=== PATIENT | female | born 1930 | race Caucasian/White ===

== ENCOUNTER 2016-12-30 08:37 | Emergency (ER) | payer MEDICARE, OTHER ==
[2016-12-30 08:47] VITALS: BP 157/88
--- NOTE | 2016-12-30 09:18 | UC ---
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 SUSTAINED A SKIN TEAR. IS STILL OOZING SLIGHTLY - PT ON XARELTO. TETANUS BOOSTED 12/2012. - History Of Current Complaint Chief Complaint: UCLaceration Stated Complaint: LEG LACERATION Time Seen by Provider: 12/30/16 08:56 Hx Obtained From: Patient Mechanism Of Injury: Blunt Trauma Onset/Duration: Sudden Onset Severity: Mild Pain Intensity: 3 Pain Scale Used: 0-10 Numeric Aggravating Factors: Nothing - Allergies/Home Medications Allergies/Adverse Reactions: Allergies Allergy/AdvReac Type Severity Reaction Status Date / Time Aspirin Allergy Unknown Unknown Verified 12/30/16 08:47 Reaction Details Morphine Allergy Unknown Unknown Verified 12/30/16 08:47 Reaction Details Penicillins Allergy Unknown Unknown Verified 12/30/16 08:47 Reaction Details Sulfa Drugs Allergy Unknown Unknown Verified 12/30/16 08:47 Reaction Details MOLD AND POLLEN Allergy Unknown Uncoded 12/30/16 08:47 Reaction Details Home Medications: Home Medications Cranberry (Vaccinium Macrocarp [Cranberry Extract] 1 tab DAILY 12/30/16 [ History Confirmed 12/30/16] Cyanocobalamin TAB* [Vitamin B12 TAB*] 1 tab PO DAILY 12/30/16 [History Confirmed 12/30/16] Hydroxychloroquine TAB* [Plaquenil TAB*] 1 tab PO DAILY 12/30/16 [History Confirmed 12/30/16] Metoprolol Succinate [Toprol Xl] 1 tab PO DAILY 12/30/16 [History Confirmed ] Montelukast Sodium TAB* [Singulair 10 MG TAB*] 1 tab PO DAILY 12/30/16 [History Confirmed 12/30/16] Multiple Vitamins W/ Minerals [Alive Once Daily Womens U] 1 tab PO DAILY [History Confirmed 12/30/16] Spironolactone [Aldactone 25 MG-] 1 tab PO DAILY 12/30/16 [History Confirmed ] Tramadol HCl [Ultram] 1 tab PO Q6HR PRN 12/30/16 [History Confirmed 12/30/16] PMH/Surg Hx/FS Hx/Imm Hx Endocrine History: Hypothyroidism, Dyslipidemia Cardiovascular History: Hypertension, Congestive Heart Failure, Atrial Fibrillation Respiratory History: Asthma Other History Of: Anticoagulant Therapy Negative For: HIV, Hepatitis B, Hepatitis C - Surgical History Surgical History: Yes Surgery Procedure, Year, and Place: [facility]. 1992 & 1993 & 2009 BILATERAL HIP REPLACEMENTS [facility] [place]. 2012 Rt HAND - GANGLION CYST [facility] [place]. 2000 THYROIDECTOMY [facility] [place]. 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 C -diff colitis - Family History Known Family History: Positive: Hypertension - Social History Alcohol Use: Occasionally Alcohol Amount: 1 GLASS OF WINE 1-2 TIMES PER WEEK Substance Use Type: None Smoking Status (MU): Former Smoker Amount Used/How Often: X 2 YEARS Have You Smoked in the Last Year: No When Did the Patient Quit Smoking/Using Tobacco: 1955 - Immunization History Most Recent Influenza Vaccination: FALL 2014 Most Recent Tetanus Shot: Unsure Most Recent Pneumonia Vaccination: UP TO DATE Review of Systems Constitutional: Negative Skin: Other - LACERATION Respiratory: Negative Cardiovascular: Negative Gastrointestinal: Negative All Other Systems Reviewed And Are Negative: Yes Physical Exam Triage Information Reviewed: Yes Appearance: Well-Appearing, No Pain Distress, Well-Nourished Vital Signs: Initial Vital Signs Temp 97.1 F 12/30/16 08:38 Pulse 59 12/30/16 08:38 Resp 16 12/30/16 08:38 BP 157/88 12/30/16 08:38 Pulse Ox 99 12/30/16 08:38 Vital Signs Reviewed: Yes Eyes: Positive: Conjunctiva Clear ENT: Positive: Hearing grossly normal Neck: Positive: Supple Respiratory: Positive: No respiratory distress, No accessory muscle use Cardiovascular: Positive: Pulses Normal Abdomen Description: Positive: Soft Musculoskeletal: Positive: No Edema Neurological: Positive: Alert Psychological: Positive: Age Appropriate Behavior Skin: Positive: Other - 4.5CM SKIN FLAP RIGHT NORIEGA Laceration Course/Dx - Course/Dx Course Of Treatment: WOUND CLEANSED AND PRESSURE DRESSING APPLIED. - Differential Dx - Laceration/Wound Provider Diagnoses: SKIN TEAR RIGHT NORIEGA Discharge - Discharge Plan Condition: Stable Disposition: HOME Patient Education Materials: Skin Tear (ED) Referrals: Madai Salinas MD [Primary Care Provider] - If Needed Additional Instructions: KEEP THE DRESSING ON UNTIL TOMORROW MORNING THEN GENTLY CLEANSE WITH SOAP AND WATER. ALLOW TO DRY COMPLETELY THEN RE-BANDAGE. DO NOT SCRUB. DO NOT SOAK FOR PROLONGED PERIODS IN WATER - NO BATHS, SWIMMING, HOT TUBS. CHANGE BANDAGE DAILY AND NEEDED IF IT BECOMES SOILED OR WET. SEEK FOLLOW-UP IF YOU DEVELOP SPREADING REDNESS OF THE SKIN, PURULENT DRAINAGE, FEVER, INCREASED PAIN OR ANY OTHER CONCERNING SYMPTOMS.
== END 2016-12-30 09:44 | disposition home or self-care (01) ==
LOC: UCEAST 08:37
DX: S81.811A Laceration without foreign body, right lower leg, initial encounter (principal); E03.9 Hypothyroidism, unspecified; E78.5 Hyperlipidemia, unspecified; I10 Essential (primary) hypertension; I50.9 Heart failure, unspecified; I48.91 Unspecified atrial fibrillation; Z79.01 Long term (current) use of anticoagulants; J45.909 Unspecified asthma, uncomplicated; Z87.891 Personal history of nicotine dependence; W22.8XXA Striking against or struck by other objects, initial encounter; Y93.G1 Activity, food preparation and clean up; Y92.000 Kitchen of unspecified non-institutional (private) residence as the place of occurrence of the external cause; Y99.9 Unspecified external cause status
CPT/HCPCS: 99212; G0463

== ENCOUNTER 2017-03-23 12:41 | Emergency (ER) | payer MEDICARE, OTHER ==
[2017-03-23 12:53] VITALS: BP 177/73
--- NOTE | 2017-03-23 13:36 | UC ---
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 Denies fever or trouble walking. - History of Current Complaint Chief Complaint: UCSkin Time Seen by Provider: 03/23/17 13:10 Stated Complaint: SOFT TISSUE COMPLAINT Hx Obtained From: Patient Hx Last Menstrual Period: Years ago. ?: No Onset/Duration: Sudden Onset Timing: Constant Onset Severity: Mild Current Severity: Moderate Location: Discrete Character: Pain, Redness Aggravating Factor(s): Touch Alleviating Factor(s): Nothing Associated Signs & Symptoms: Positive: Rash, Tenderness Related History: Trauma - Allergy/Home Medications Allergies/Adverse Reactions: Allergies Allergy/AdvReac Type Severity Reaction Status Date / Time Aspirin Allergy Unknown Unknown Verified 03/23/17 12:53 Reaction Details Morphine Allergy Unknown Unknown Verified 03/23/17 12:53 Reaction Details Penicillins Allergy Unknown Unknown Verified 03/23/17 12:53 Reaction Details Sulfa Drugs Allergy Unknown Unknown Verified 03/23/17 12:53 Reaction Details MOLD AND POLLEN Allergy Unknown Uncoded 03/23/17 12:53 Reaction Details Review of Systems Constitutional: Negative Skin: Rash, Bruising Eyes: Negative ENT: Negative Respiratory: Negative Cardiovascular: Negative Gastrointestinal: Negative Genitourinary: Negative Motor: Negative Neurovascular: Negative Musculoskeletal: Negative Neurological: Negative Psychological: Negative Is Patient Immunocompromised?: No All Other Systems Reviewed And Are Negative: Yes PMH/Surg Hx/FS Hx/Imm Hx - Additional Past Medical History Additional PMH: Hx of c-diff Endocrine History: Thyroid Disease Cardiovascular History: Hypertension, Congestive Heart Failure, Atrial Fibrillation Respiratory History: Asthma Other Cancer History: skin CA Other History Of: Anticoagulant Therapy Negative For: HIV, Hepatitis B, Hepatitis C - Surgical History Surgical History: Yes Surgery Procedure, Year, and Place: [facility]. 1992 & 1993 & 2009 BILATERAL HIP REPLACEMENTS [facility] [place] 2012 Rt HAND - [facility]ANGLION [facility]ST [facility]. 2000 THYROIDECTOMY [facility] [place]. 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 C -diff colitis - Family History Known Family History: Positive: Hypertension - Social History Alcohol Use: Occasionally Alcohol Amount: 1 GLASS OF WINE 1-2 TIMES PER WEEK Substance Use Type: None Smoking Status (MU): Former Smoker Amount Used/How Often: X 2 YEARS Have You Smoked in the Last Year: No When Did the Patient Quit Smoking/Using Tobacco: 1955 - Immunization History Most Recent Influenza Vaccination: FALL 2014 Most Recent Tetanus Shot: Unsure Most Recent Pneumonia Vaccination: UP TO DATE Physical Exam Triage Information Reviewed: Yes Appearance: Well-Appearing, No Pain Distress, Well-Nourished Vital Signs: Initial Vital Signs Temp 97.4 F 03/23/17 12:49 Pulse 51 03/23/17 12:49 Resp 18 03/23/17 12:49 BP 177/73 03/23/17 12:49 Pulse Ox 98 03/23/17 12:49 Vital Signs Reviewed: Yes Eyes: Positive: Conjunctiva Clear ENT Exam: Normal ENT: Positive: Normal ENT inspection, Hearing grossly normal, Pharynx normal, TMs normal Neck exam: Normal Neck: Positive: Supple, Nontender Respiratory Exam: Normal Respiratory: Positive: Chest non-tender, Lungs clear, Normal breath sounds, No respiratory distress, No accessory muscle use Cardiovascular Exam: Normal Cardiovascular: Positive: RRR Musculoskeletal Exam: Normal Musculoskeletal: Positive: Strength Intact, ROM Intact Neurological Exam: Normal Neurological: Positive: Alert Psychological Exam: Normal Skin Exam: Other - 2 longitudinal abrasions on L melton 3-4cm long x 1cm wide with dark surrounding erythema, warmth, tenderness Course/Dx - Diagnoses Provider Diagnoses: L melton abrasions. L melton cellulitis Discharge - Discharge Plan Condition: Stable Disposition: HOME Prescriptions: DOXYcycline CAP(*) [DOXYcycline 100MG CAP(*)] 100 mg PO BID #10 cap Mupirocin 2% OINT* [Bactroban 2 % Oint*] 1 applic TOPICAL BID #1 tube Patient Education Materials: Cellulitis (ED), Abrasion (ED) Referrals: Madai Salinas MD [Primary Care Provider] - Additional Instructions: When possible, try to elevate the leg above the level of your heart. Wash the area with warm soaks (use soap or epsom salts) twice daily and reapply your ointment. If you have fever or worsening symptoms, please go to the emergency department. Otherwise, see your primary care provider in 3-4 days for a recheck.
== END 2017-03-23 13:41 | disposition home or self-care (01) ==
LOC: UCEAST 12:41
DX: S80.812A Abrasion, left lower leg, initial encounter (principal); Z88.6 Allergy status to analgesic agent; Z88.0 Allergy status to penicillin; Z88.2 Allergy status to sulfonamides; I11.0 Hypertensive heart disease with heart failure; I50.9 Heart failure, unspecified; I48.91 Unspecified atrial fibrillation; J45.909 Unspecified asthma, uncomplicated; Z85.828 Personal history of other malignant neoplasm of skin; X58.XXXA Exposure to other specified factors, initial encounter; Y92.9 Unspecified place or not applicable
CPT/HCPCS: 99212; G0463

== ENCOUNTER 2017-04-25 08:54 | Emergency (ER) | payer MEDICARE, OTHER ==
[2017-04-25 09:11] VITALS: BP 144/72
--- NOTE | 2017-04-25 09:37 | UC ---
Complaint Female HPI - History Of Current Complaint Chief Complaint: UCGeneralIllness Stated Complaint: UTI Time Seen by Provider: 04/25/17 09:19 Hx Obtained From: Patient Hx Last Menstrual Period: Years ago. Onset/Duration: Gradual Onset - was treted for UTI 2 weeks ago. finished cephalexin yesterday. over psat 2-3 days sh eas had worsening burning "on the flesh" of her private area. no vag d/c, very burning and itchy irritated Timing: Constant Severity Initially: Mild Severity Currently: Moderate Character: Burning Aggravating Factor(s): Urination Alleviating Factor(s): Nothing Associated Signs And Symptoms: Positive: Negative - Allergies/Home Medications Allergies/Adverse Reactions: Allergies Allergy/AdvReac Type Severity Reaction Status Date / Time Aspirin Allergy Unknown Unknown Verified 04/25/17 09:11 Reaction Details Morphine Allergy Unknown Unknown Verified 04/25/17 09:11 Reaction Details Penicillins Allergy Unknown Unknown Verified 04/25/17 09:11 Reaction Details Sulfa Drugs Allergy Unknown Unknown Verified 04/25/17 09:11 Reaction Details MOLD AND POLLEN Allergy Unknown Uncoded 04/25/17 09:11 Reaction Details Home Medications: Home Medications Fluticasone/Vilanterol MDI(NF) [Breo Ellipta MDI 100/25(NF)] 1 puff INH DAILY [History Confirmed 04/25/17] Lactobacillus [Probiotic] 1 cap PO DAILY 04/25/17 [History Confirmed 04/25/17] PMH/Surg Hx/FS Hx/Imm Hx Previously Healthy: Yes Endocrine History: Dyslipidemia Cardiovascular History: Hypertension Respiratory History: COPD Other History Of: Anticoagulant Therapy Negative For: HIV, Hepatitis B, Hepatitis C - Surgical History Surgical History: Yes Surgery Procedure, Year, and Place: [facility]. 1992 & 1993 & 2009 BILATERAL HIP REPLACEMENTS [facility] [place]. 2012 Rt HAND - [facility]ANGLION [facility]. 2000 THYROIDECTOMY [facility] [place]. 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 C -diff colitis - Family History Known Family History: Positive: Hypertension - Social History Occupation: Retired Lives: Alone Alcohol Use: Occasionally Alcohol Amount: 1 GLASS OF WINE 1-2 TIMES PER WEEK Substance Use Type: None Smoking Status (MU): Former Smoker Amount Used/How Often: X 2 YEARS Have You Smoked in the Last Year: No When Did the Patient Quit Smoking/Using Tobacco: 1955 - Immunization History Most Recent Influenza Vaccination: 04/24 Most Recent Tetanus Shot: Unsure Most Recent Pneumonia Vaccination: UP TO DATE Review of Systems Constitutional: Negative Respiratory: Negative Cardiovascular: Negative Genitourinary: Dysuria, Vaginal/Penile Burning, Vaginal/Penile Itching Neurovascular: Negative Neurological: Negative Psychological: Negative All Other Systems Reviewed And Are Negative: Yes Physical Exam Triage Information Reviewed: Yes Appearance: Well-Appearing, No Pain Distress, Well-Nourished Vital Signs: Initial Vital Signs Temp 98.7 F 04/25/17 09:04 Pulse 60 04/25/17 09:04 Resp 18 04/25/17 09:04 BP 144/72 04/25/17 09:04 Pulse Ox 98 04/25/17 09:04 Vital Signs Reviewed: Yes Respiratory Exam: Normal Cardiovascular Exam: Normal Cardiovascular: Positive: RRR Abdominal Exam: Normal Abdomen Description: Positive: Nontender, No Organomegaly, Soft Neurological Exam: Normal Psychological Exam: Normal Complaint Female Dx - Differential Dx/Diagnosis Differential Diagnosis/HQI/PQRI: Ureteral Stone, Urinary Tract Infection, Other - vaginitis Provider Diagnoses: vaginitis Discharge - Discharge Plan Condition: Stable Disposition: HOME Prescriptions: Fluconazole [Diflucan 150 MG (NF)] 150 mg PO ONCE #1 tab Patient Education Materials: Vaginitis (ED) Referrals: Madai Salinas MD [Primary Care Provider] - 2 Days (if no better) Additional Instructions: Use over the counter monistat cream for vaginal yeast infection take one diflucan pill as directed
== END 2017-04-25 09:50 | disposition home or self-care (01) ==
LOC: UCEAST 08:54
DX: N76.0 Acute vaginitis (principal)
CPT/HCPCS: 81003; 87086; 99212; G0463

== ENCOUNTER 2017-11-18 10:30 | Emergency (ER) | payer MEDICARE, OTHER ==
--- OUTSIDE RECORDS SUMMARY | 2017-11-18 10:38 | XMS REPORT ---
:1930 External Reference #:[id number] Author Organization [facility] Address [address] [place] [address] Phone [phone] Care Team Providers Name Role Phone Madai Salinas MD Care Team Information Spot Sprayer Unavailable Madai Salinas MD Primary Care Physician Unavailable Payers Type Date Identification Numbers Payment Provider Subscriber Medicare Primary Policy Number: [id number] Medicare [place] Jennifer Cooper PayID: [id number] [address] [place] [address] Commercial Policy Number: [id number] Lifetime Benefit Jennifer Cooper Solution PayID: [id number] [address] [place] [address] Problems Date Description Provider Status Onset: 11/11/2017 Exacerbation of moderate Rom Lepe MD Active persistent asthma Onset: 04/24/2017 Mild intermittent asthma WARREN Orosco Active Onset: 11/24/2016 Exacerbation of intermittent Mei Lorenz RPA-Rafa Active asthma Onset: 11/28/2015 Dyspnea Mei Lorenz RPA-Rafa Active Onset: 06/29/2015 Mild intermittent asthma Mei Lorenz RPA-C Active Onset: 06/29/2015 Allergic rhinitis Mei Lorenz RPA-C Active Onset: 06/29/2015 Allergic rhinitis due to pollen ADAM Omer Active Social History Type Date Description Comments Smoke-Free Home is smoke-free Pets 1 dog Occupation Retired and lives alone Smoking Patient is a former smoker Smoked for a time in her early 20s Allergies, Adverse Reactions, Alerts Date Description Reaction Status Severity Comments 04/06/2013 Aspirin active 04/06/2013 Penicillins active 04/06/2013 Morphine Sulfate active 04/06/2013 Sulfa (Sulfonamide Antibiotics) active Medications Medication Date Status Form Strength Qnty SIG Indications Ordering Provider Prednisone 11/11 Active Tablets 5mg 30tab 6 tablets J45.41 s (30 mg) Eugene Lepe MD by mouth once a day x 5 days Breo Ellipta 11/11 Active Aerosol 200-25mcg 1unit inhale J45.41 opher /2017 /Inh s one puff Eugene Lepe MD once a day Qvar Redihaler 09/09 Active Aerosol 80mcg/Act 1unit inhale 2 s puffs Eugene Lepe MD twice a day. rinse mouth after use. Flonase Allergy 05/22 Active Suspension 50mcg/Act 1unit 2 puffs Alva Richard, s each [employer] nostril every day during spring with exposure to pollen Breo Ellipta 05/11 Active Aerosol 100-25mcg 28uni 1 puff Alva Richard, /Inh ts every day [employer] mouth care afterward Montelukast 10/04 Active Tablets 10mg 30tab take 1 Christopher Sodium s tablet Eugene Lepe MD (10 mg) by oral route once daily in the evening Levocetirizine 06/15 Active Tablets 5mg 30tab take 1 Omer, Dihydrochloride s tablet po YESIKA Cid once daily as needed Xopenex HFA 09/01 Active Aerosol 45mcg/Act 15gm inhale Alva Nevarez one puff [employer] by inhalatio n route every 4 hours, as needed. Received Indefinit e Approval Lipitor Active Tablets 10mg 1 by Unknown / mouth every day Xarelto Active Tablets 20mg Unknown Levothyroxine Active Unknown Sodium /0000 Plaquenil Active Unknown Spironolactone Active Unknown Cranberry Active Unknown Urinary Comfort 0000 Vitamin B12 Active Unknown Tylenol Active 2 tabs q 6hrs Cozaar Active Tablets 50mg 1 by Unknown /0000 mouth every day Toprol XL Active Tablets ER 25mg Unknown / 24HR Prednisone 11/24 Hx Tablets 20mg 10tab Take one J45.21 s tablet by Eugene Lepe MD - mouth 04/24 twice a day x5 days. Take with food. Flonase Allergy 06/15 Hx Suspension 50mcg/Act 3unit 2 puffs s each Eugene Lepe MD - nostril 04/24 every day Qvar 05/22 Hx Aerosol 80mcg/Act 8.7un inhale 2 its puffs by YESIKA Cid - inhalatio 05/11 n route times per day. rinse mouth after use. Singulair 04/26 Hx Tablets 10mg 30tab take 1 Mei S. s tablet Fenstermache - (10 mg) YESIKA causey 06/29 by oral route once daily in the evening Neurontin Hx Capsules 300mg Unknown /0000 - 04/24 Qnasl 00/ Hx Unknown /0000 - 05/22 Pataday 00/ Hx Unknown /0000 - 04/24 Alavert 00/00 Hx Unknown / - 11/27 Furosemide 00/00 Hx Unknown / - 11/11 Metoprolol 00/ Hx Unknown Tartrate / - 11/11 Potassium Hx Capsules 10Meq take 2 Unknown Chloride ER /0000 ER capsules - by mouth 04/24 daily Alive Womens 50+ Hx Tablets Unknown /0000 - 11/11 Tramadol HCL ER 00/00 Hx 1 tab 4x Unknown /0000 a day ( - max) 11/11 Fluticasone 00/00 Hx Unknown Propionate /0000 - 11/11 Vital Signs Date Vital Result Comment 11/11/2017 BP Systolic 144 mmHg BP Diastolic 80 mmHg Height 63 inches 5'3" Weight 133.00 lb BMI (Body Mass Index) 23.6 kg/m2 Heart Rate 55 /min Respiratory Rate 20 /min Body Temperature 97.0 F O2 % BldC Oximetry 97 % 05/22/2017 Height 63 inches 5'3" Weight 138.00 lb BMI (Body Mass Index) 24.4 kg/m2 04/24/2017 Height 63 inches 5'3" Weight 138.00 lb BMI (Body Mass Index) 24.4 kg/m2 Heart Rate 55 /min Respiratory Rate 14 /min Body Temperature 96.3 F O2 % BldC Oximetry 99 % 11/24/2016 BP Systolic 122 mmHg BP Diastolic 68 mmHg Height 63 inches 5'3" Weight 138.00 lb BMI (Body Mass Index) 24.4 kg/m2 Heart Rate 55 /min Respiratory Rate 20 /min Body Temperature 95.6 F O2 % BldC Oximetry 98 % 11/28/2015 BP Systolic 140 mmHg BP Diastolic 82 mmHg Height 63 inches 5'3" Weight 133.00 lb BMI (Body Mass Index) 23.6 kg/m2 Heart Rate 50 /min Respiratory Rate 18 /min O2 % BldC Oximetry 98 % 06/29/2015 BP Systolic 118 mmHg BP Diastolic 70 mmHg Height 63.5 inches 5'3.50" Weight 130.00 lb BMI (Body Mass Index) 22.7 kg/m2 Heart Rate 80 /min Respiratory Rate 24 /min 04/28/2014 BP Systolic 148 mmHg BP Diastolic 88 mmHg Heart Rate 59 /min 10/26/2013 BP Systolic 122 mmHg BP Diastolic 71 mmHg Height 62 inches Weight 135.00 lb Heart Rate 71 /min 07/01/2013 BP Systolic 181 mmHg BP Diastolic 83 mmHg Heart Rate 51 /min 04/27/2013 BP Systolic 140 mmHg BP Diastolic 80 mmHg Heart Rate 80 /min 04/06/2013 BP Systolic 153 mmHg BP Diastolic 85 mmHg Height 62 inches Weight 134.00 lb Heart Rate 52 /min Results Test Date Test Result H/L Range Note Order 05/22/2017 Nitric Oxide <pending> PFT Supplies <pending> PFT With Bronchodilator <pending> Procedures Date CPT Code Description Status 05/22/2017 96749 Nitric Oxide Gas Determination Completed 05/22/2017 55722 Nitric Oxide Gas Determination Completed 05/22/2017 00480 Bronchodilation Responsiveness Spirometry Pre/Post Completed Bronchodil Adm 05/22/2017 80851 Bronchodilation Responsiveness Spirometry Pre/Post Completed Bronchodil Adm 04/24/2017 81889 Nitric Oxide Gas Determination Completed 04/24/2017 57774 Nitric Oxide Gas Determination Completed 04/24/2017 04169 Bronchodilation Responsiveness Spirometry Pre/Post Completed Bronchodil Adm 04/24/2017 77916 Bronchodilation Responsiveness Spirometry Pre/Post Completed Bronchodil Adm 11/24/2016 99186 Nitric Oxide Gas Determination Completed 11/24/2016 81619 Bronchodilation Responsiveness Spirometry Pre/Post Completed Bronchodil Adm 11/28/2015 30094 Spirometry Completed 06/29/2015 01827 Bronchodilation Responsiveness Spirometry Pre/Post Completed Bronchodil Adm Encounters Type Date Location Provider CPT E/M Dx Office Visit 05/22/2017 1:30p WARREN Juarez 61163 J30.89 R06.02 J30.1 J45.20 Office Visit 04/24/2017 11:30a WARREN Juarez 56793 J45.20 R06.02 J30.89 J30.1 Office Visit 11/24/2016 1:00p YESIKA Bejarano 17377 J45.21 J30.1 J30.89 Office Visit 11/28/2015 8:45a Harrison Lorenz RPA-Rafa 38472 R06.02 Office Visit 06/29/2015 9:30a Harrison Lorenz RPA-Rafa 81944 J30.1 J30.89 J45.20 Plan of Care Future Appointment(s):11/20/2017 2:00 pm - ROSAURA Jacques at [id number]/11/2017 - Rom Lepe MDJ45.41 Moderate persistent asthma with (acute) exacerbationNew Medication:Prednisone 5 mgBreo Ellipta 200-25 mcg/Inh
--- OUTSIDE RECORDS SUMMARY | 2017-11-18 10:38 | XMS REPORT ---
:1930 External Reference #:[id number] Author Organization [facility] Address [address] [place] [address] Phone [phone] Care Team Providers Name Role Phone Madai Salinas MD Care Team Information Boat Deckhand Unavailable Madai Salinas MD Primary Care Physician Unavailable Payers Type Date Identification Numbers Payment Provider Subscriber Medicare Primary Policy Number: [id number] Medicare [place] Jennifer Cooper PayID: [id number] [address] [place] [address] Commercial Policy Number: [id number] Lifetime Benefit Jennifer Cooper Solution PayID: [id number] [address] [place] [address] Problems Date Description Provider Status Onset: 04/24/2017 Mild intermittent asthma WARREN Orosco Active Onset: 11/24/2016 Exacerbation of intermittent Mei Lorenz, Active asthma RPA-C Onset: 11/28/2015 Dyspnea Mei Lorenz, Active RPA-C Onset: 06/29/2015 Mild intermittent asthma Mei Rodriguezermacher, Active RPA-C Onset: 06/29/2015 Allergic rhinitis Mei Lorenz, Active RPA-C Onset: 06/29/2015 Allergic rhinitis due to pollen Mei Lorenz, Active RPA-C Social History Type Date Description Comments Smoke-Free [...] Form Strength Qnty SIG Indications Ordering Provider Qvar Redihaler 09/09 Active Aerosol 80mcg/Act 1unit inhale 2 s puffs Eugene Lepe MD twice a day. rinse mouth after use. Flonase Allergy 05/22 Active Suspension 50mcg/Act 1unit 2 puffs Alva Richard, s each ONLINE MARKETER nostril every day during Spring season with exposure to pollen Breo Ellipta 05/11 Active Aerosol 100-25mcg 28uni 1 puff Alva Richard /Inh ts every day ONLINE MARKETER mouth care afterward Montelukast 10/04 Active Tablets 10mg 30tab take 1 opher Sodium s tablet Eugene Lepe MD (10 mg) by oral route once daily in the evening Levocetirizine 06/15 Active Tablets 5mg 30tab take 1 Angelina Tello s tablet po YESIKA Cid once daily as needed Xopenex HFA 09/01 Active Aerosol 45mcg/Act 15gm inhale Alva one puff ONLINE MARKETER by inhalatio n route every 4 hours, as needed. Received Indefinit e Approval Lipitor Active Tablets 10mg 1 by Unknown /0000 mouth every day Xarelto Active Tablets 20mg Unknown / Levothyroxine Active Unknown Sodium Furosemide Active Unknown Plaquenil Active Unknown Metoprolol Active Unknown Tartrate Spironolactone Active Unknown Cranberry Active Unknown Urinary Comfort 0000 Alive Womens 50+ Active Tablets Unknown /0000 Vitamin B12 Active Unknown / Tylenol Active 2 tabs q Unknown 6hrs Tramadol HCL ER Active 1 tab 4x Unknown 0000 a day ( max) Fluticasone Active Unknown Propionate 0000 Prednisone 11/24 Hx Tablets 20mg 10tab Take one J45.21 s tablet by Eugene Lepe MD - mouth 04/24 twice a /2016 day x5 days. Take with food. Flonase Allergy 06/15 Hx Suspension 50mcg/Act 3unit 2 puffs Christopher s each Eugene Lepe MD - nostril 04/24 every Qvar 05/22 Hx Aerosol 80mcg/Act 8.7un inhale 2 its puffs by YESIKA Cid - inhalatio 05/11 n route times per day. rinse mouth after use. Singulair 04/26 Hx Tablets 10mg 30tab take 1 Mei S. /2014 s tablet Fenstermache - (10 mg) YESIKA causey 06/29 by oral route once daily in the evening Neurontin Hx Capsules 300mg Unknown /0000 - 04/24 Qnasl 00 Hx Unknown /0000 - 05/22 Pataday 00 Hx Unknown /0000 - 04/24 Alavert 00 Hx Unknown /0000 - 11/27 Potassium Hx Capsules 10Meq take 2 Unknown Chloride ER /0000 ER capsules - by mouth 04/24 once daily Vital Signs Date Vital Result Comment 11/11/2017 [...] Procedures Date CPT Code Description Status 05/22/2017 12057 Nitric Oxide Gas Determination Completed 05/22/2017 86101 Nitric Oxide Gas Determination Completed 05/22/2017 93388 Bronchodilation Responsiveness Spirometry Pre/Post Completed Bronchodil Adm 05/22/2017 86332 Bronchodilation Responsiveness Spirometry Pre/Post Completed Bronchodil Adm 04/24/2017 93634 Nitric Oxide Gas Determination Completed 04/24/2017 18504 Nitric Oxide Gas Determination Completed 04/24/2017 77212 Bronchodilation Responsiveness Spirometry Pre/Post Completed Bronchodil Adm 04/24/2017 44483 Bronchodilation Responsiveness Spirometry Pre/Post Completed Bronchodil Adm 11/24/2016 50609 Nitric Oxide Gas Determination Completed 11/24/2016 58819 Bronchodilation Responsiveness Spirometry Pre/Post Completed Bronchodil Adm 11/28/2015 94832 Spirometry Completed 06/29/2015 09553 Bronchodilation Responsiveness Spirometry Pre/Post Completed Bronchodil Adm Encounters Type Date Location Provider CPT E/M Dx Office Visit 05/22/2017 1:30p AWRREN Juarez 35157 J30.89 R06.02 J30.1 J45.20 Office Visit 04/24/2017 11:30a WARREN Juarez 84984 J45.20 R06.02 J30.89 J30.1 Office Visit 11/24/2016 1:[place]p [place] 63131 J45.21 J30.1 J30.89 Office Visit 11/28/2015 8:45a [place] 54290 R06.02 Office Visit 06/29/2015 9:30a [place] YESIKA Omer 09434 J30.1 J30.89 J45.20 Plan of Care Future Appointment(s):11/20/2017 2:00 pm - ROSAURA Jacques at [place]
[2017-11-18] MEDS ORDERED: Tetan/Diph/Pertus SYR(Tdap)* 0.5 ML SYR(BOOSTRIX) use SYR IM ONE (12:59)
--- NOTE | 2017-11-18 13:00 | UC ---
Laceration HPI - History Of Current Complaint Chief Complaint: UCLaceration Stated Complaint: ARM INJURY Time Seen by Provider: 11/18/17 12:47 Hx Obtained From: Patient Hx Last Menstrual Period: Years ago. Laceration Location: Arm - RT upper arm superficial laceration Mechanism Of Injury: Sharp Trauma Onset/Duration: Sudden Onset, Lasting Days - 2 days Severity: Mild Pain Intensity: 2 Pain Scale Used: 0-10 Numeric Aggravating Factors: Other: - touch Related History: Dominant Hand Right - Allergies/Home Medications Allergies/Adverse Reactions: Allergies Allergy/AdvReac Type Severity Reaction Status Date / Time aspirin Allergy Vomiting Verified 11/18/17 10:49 morphine Allergy unk Verified 11/18/17 10:48 Penicillins Allergy unk Verified 11/18/17 10:52 Sulfa (Sulfonamide Allergy reasp Verified 11/18/17 10:53 Antibiotics) distress MOLD AND POLLEN Allergy Unknown Uncoded 04/25/17 09:11 Reaction Details PMH/Surg Hx/FS Hx/Imm Hx Previously Healthy: Yes Other History Of: Anticoagulant Therapy Negative For: HIV, Hepatitis B, Hepatitis C - Surgical History Surgical History: Yes Surgery Procedure, Year, and Place: [facility]. 1992 & 1993 & 2009 BILATERAL HIP REPLACEMENTS [facility]. 2012 Rt HAND - GANGLION CYST [facility]. 2000 TH[facility]ROIDECTOMY [facility]. 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 C -diff colitis - Family History Known Family History: Positive: Hypertension - Social History Alcohol Use: Occasionally Alcohol Amount: 1 GLASS OF WINE 1-2 TIMES PER WEEK Substance Use Type: None Smoking Status (MU): Former Smoker Amount Used/How Often: X 2 YEARS Have You Smoked in the Last Year: No When Did the Patient Quit Smoking/Using Tobacco: 1955 - Immunization History Most Recent Influenza Vaccination: 04/24 Most Recent Tetanus Shot: Unsure Most Recent Pneumonia Vaccination: UP TO DATE Review of Systems Constitutional: Negative Skin: Other - Rt upper arm superficial laceration s/p injury w/ a door frame Eyes: Negative ENT: Negative Respiratory: Negative Cardiovascular: Negative Gastrointestinal: Negative Genitourinary: Negative Motor: Negative Neurovascular: Negative Musculoskeletal: Negative Neurological: Negative Psychological: Negative Is Patient Immunocompromised?: No All Other Systems Reviewed And Are Negative: Yes Physical Exam - Summary Physical Exam Summary: Vital Signs Reviewed: Yes General: well developed, well nourished female sitting in the examining table w/ o any apparent distress Eye Exam: Normal Eyes: Positive: Conjunctiva Clear - PERRLA, EOMI, fundi grossly normal ENT: Positive: Normal ENT inspection, Hearing grossly normal, Pharynx normal, TMs normal Neck: Positive: Supple, Nontender, No Lymphadenopathy Respiratory: Positive: Chest non-tender, Lungs clear, Normal breath sounds, No respiratory distress Cardiovascular: Positive: RRR, No Murmur, Pulses Normal, Brisk Capillary Refill Abdomen Description: Positive: Nontender, No Organomegaly, Soft. Negative: CVA Tenderness (R), CVA Tenderness (L) Bowel Sounds: Positive: Present Musculoskeletal: Positive: Strength Intact, ROM Intact, No Edema Neurological: Positive: Alert, Muscle Tone Normal Psychological Exam: Normal Skin: Positive: medial asper of the distal Rt upper arm w/ and irregular avulse stellar superficial laceration about 4.0 cm in size, no bleeding, no foreign body observed. no tenderness to palpation, FROM of RT arm, sensation intact, capillary refill brisk, and pulses WNL. Triage Information Reviewed: Yes Vital Signs: Initial Vital Signs Temp 98 F 11/18/17 10:45 Pulse 69 11/18/17 10:45 Resp 16 11/18/17 10:45 BP 133/76 11/18/17 10:45 Pulse Ox 98 11/18/17 10:45 Laceration Course/Dx - Differential Dx - Laceration/Wound Differental Diagnoses: Avulsion, Dehiscence, Laceration, Puncture Wound Provider Diagnoses: 1- RT upper arm avulsed laceration Discharge - Discharge Plan Condition: Stable Disposition: HOME Prescriptions: Bacitracin OINTMENT* 1 applic TOPICAL TID #1 tube Patient Education Materials: Laceration (ED), Acute Wound Care (ED) Referrals: Madai Salinas MD [Primary Care Provider] - 2 Days Additional Instructions: 1-Please apply topical antibiotic over the wound. Keep wound clean and dry. 2-Take Tylenol PO q6-8hrs prn for pain or swelling. Please avoid too much flexion w/ your RT arm 4- If you develop fever or redness around your finger despite the antibiotic please return to the Urgent care mor f/u w/ your PCP for further management - Billing Disposition and Condition Condition: STABLE Disposition: Home
[2017-11-18 13:30] VITALS: BP 129/87
== END 2017-11-18 13:45 | disposition home or self-care (01) ==
LOC: UCEAST 10:30
DX: S41.111A Laceration without foreign body of right upper arm, initial encounter (principal); W45.8XXA Other foreign body or object entering through skin, initial encounter; Y92.9 Unspecified place or not applicable; Z88.6 Allergy status to analgesic agent; Z88.5 Allergy status to narcotic agent; Z88.0 Allergy status to penicillin; Z88.2 Allergy status to sulfonamides; Z87.891 Personal history of nicotine dependence
CPT/HCPCS: 90715; 99212; G0463

== ENCOUNTER 2018-02-22 18:07 | Emergency (ER) | payer MEDICARE, OTHER ==
[2018-02-22 20:01] VITALS: BP 170/82
[2018-02-22] MEDS ORDERED: Benzoin Compound STICK TOPICAL ONE (20:04)
--- NOTE | 2018-02-22 20:08 | UC ---
Laceration HPI - HPI Summary HPI Summary: shut left lower leg in care door about 3 hours ago - History Of Current Complaint Chief Complaint: UCLaceration Stated Complaint: L LEG LAC Time Seen by Provider: 02/22/18 19:59 Hx Obtained From: Patient Hx Last Menstrual Period: Years ago. Laceration Location: Calf - left lower Mechanism Of Injury: Blunt Trauma Onset/Duration: Sudden Onset, Lasting Hours - 3 Pain Intensity: 4 Pain Scale Used: 0-10 Numeric - Allergies/Home Medications Allergies/Adverse Reactions: Allergies Allergy/AdvReac Type Severity Reaction Status Date / Time aspirin Allergy Vomiting Verified 02/22/18 20:02 morphine Allergy unk Verified 02/22/18 20:02 Penicillins Allergy unk Verified 02/22/18 20:02 Sulfa (Sulfonamide Allergy reasp Verified 02/22/18 20:02 Antibiotics) distress MOLD AND POLLEN Allergy Unknown Uncoded 02/22/18 20:02 Reaction Details PMH/Surg Hx/FS Hx/Imm Hx Previously Healthy: No Endocrine History: Hypothyroidism, Dyslipidemia Cardiovascular History: Cardiac Disease, Hypertension Respiratory History: Asthma Other History Of: Anticoagulant Therapy Negative For: HIV, Hepatitis B, Hepatitis C - Surgical History Surgical History: Yes Surgery Procedure, Year, and Place: [facility]. 1992 & 1993 & 2009 [place] [facility] [place] 2012 Rt HAND - GANGLION [facility]ST [facility]. 2000 [place] [facility] [place] 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 C -diff colitis - Family History Known Family History: Positive: Hypertension - Social History Occupation: Retired Lives: Alone Alcohol Use: Occasionally Alcohol Amount: 1 GLASS OF WINE 1-2 TIMES PER WEEK Substance Use Type: None Smoking Status (MU): Former Smoker Amount Used/How Often: X 2 YEARS Have You Smoked in the Last Year: No When Did the Patient Quit Smoking/Using Tobacco: 1955 - Immunization History Most Recent Influenza Vaccination: 04/24 Most Recent Tetanus Shot: <5 YEARS Most Recent Pneumonia Vaccination: UP TO DATE Review of Systems Constitutional: Negative Skin: Negative, Other - 12 cm skin tear left calf Eyes: Negative ENT: Negative Respiratory: Negative Cardiovascular: Negative Gastrointestinal: Negative Genitourinary: Negative Motor: Negative Neurovascular: Negative Musculoskeletal: Negative Neurological: Negative Psychological: Negative Is Patient Immunocompromised?: No All Other Systems Reviewed And Are Negative: Yes Physical Exam Triage Information Reviewed: Yes Appearance: Well-Appearing, No Pain Distress, Well-Nourished Vital Signs: Initial Vital Signs Temp 97.1 F 02/22/18 19:56 Pulse 54 02/22/18 19:56 Resp 16 02/22/18 19:56 BP 170/82 02/22/18 19:56 Pulse Ox 100 02/22/18 19:56 Vital Signs Reviewed: Yes Eye Exam: Normal Eyes: Positive: Conjunctiva Clear ENT Exam: Normal ENT: Positive: Normal ENT inspection, Hearing grossly normal. Negative: Nasal congestion, Nasal drainage, Trismus, Muffled voice, Hoarse voice Neck exam: Normal Neck: Positive: Supple, Nontender, No Lymphadenopathy Respiratory Exam: Normal Respiratory: Positive: Chest non-tender, No respiratory distress, No accessory muscle use Cardiovascular Exam: Normal Cardiovascular: Positive: RRR, Pulses Normal, Brisk Capillary Refill Musculoskeletal Exam: Normal Musculoskeletal: Positive: Strength Intact, ROM Intact, No Edema Neurological Exam: Normal Neurological: Positive: Alert, Muscle Tone Normal Psychological Exam: Normal Skin: Positive: Other - 12 cm skin tear left calf Laceration Repair - Laceration Repair 1 Description: Irregular Laceration Size After Repair: Length (cm) - 12, Width (mm) - 5, Depth (mm) - 2 Modified For Repair: No Cleansing Completed Via Routine Prep: Yes Irrigation With Pressure Irrigation Device: Yes Closure Material: SteriStrips Closure Method: Single Layer Laceration Course/Dx - Course/Dx Course Of Treatment: janett wrap applied, patient tolerated well. patient will call PCP in am to conform tetanus is uptodate--allow steri strips to fall off on their own--re-check prn - Differential Dx - Laceration/Wound Provider Diagnoses: 12 cm skin tear with steri repair left lower leg, elevated bod pressure in poor control Discharge - Sign-Out/Discharge Documenting (check all that apply): Patient Departure All imaging exams completed and their final reports reviewed: Yes - Discharge Plan Condition: Stable Disposition: HOME Patient Education Materials: Contusion in Adults (ED), Hypertension (ED), Steristrips (ED) Referrals: Madai Salinas MD [Primary Care Provider] - (check with Dr. Salinas in morning regards tetanus vaccine) - Billing Disposition and Condition Condition: STABLE Disposition: Home - Attestation Statements Provider Attestation: I was available for consult. This patient was seen by the [facility]. The patient was not presented to, seen by, or examined by me. -Juan Diego
[2018-02-22] MEDS ORDERED: traMADol TAB* 50 MG PO ONE (20:25)
== END 2018-02-22 21:13 | disposition home or self-care (01) ==
LOC: UCEAST 18:07
CPT/HCPCS: 99212; A9270-GY; G0463

== ENCOUNTER 2018-09-06 08:29 | Emergency (ER) | payer MEDICARE, OTHER ==
[2018-09-06 08:46] VITALS: BP 149/95
--- NOTE | 2018-09-06 09:01 | UC ---
Laceration HPI - HPI Summary HPI Summary: 87 y/o female presents to the urgent care c/o Rt upper arm skin tear s/p dog scratch yesterday afternoon. Pt reports her daughter's dog came to greed her and accidentally scratched her upper arm. Dog is UT w/ all vaccines for her age and she is UTD w/ Tetanus vaccine. She irrigated well area and cover it w/ a big band aid. however this morning she went to her swimming class and removed the band-aid and skin tear began bleeding again since Pt is in Xarelto for A-fib. Pain is 4/10 at touch. Pt can move Rt elbow and Rt arm w/o any problem, Pt denies fever, numbness or tingling sensation over the RT arm. She has mid bruise around wond w/ mild swelling. Pt denies SOB, CALVO, dizziness, Chest pain, abdominal pain, N/V/d. - History Of Current Complaint Chief Complaint: UCSkin Stated Complaint: RT ARM SKIN TEAR Time Seen by Provider: 09/06/18 08:58 Hx Obtained From: Patient Hx Last Menstrual Period: Years ago. Laceration Location: Arm - skin tear of right upper arm s/p dog scratch Mechanism Of Injury: Sharp Trauma Onset/Duration: Lasting Hours - 12 hrs Severity: Mild Pain Intensity: 4 Pain Scale Used: 0-10 Numeric Aggravating Factors: Other: - touch Related History: Dominant Hand Right - Allergies/Home Medications Allergies/Adverse Reactions: Allergies Allergy/AdvReac Type Severity Reaction Status Date / Time aspirin Allergy Vomiting Verified 09/06/18 08:45 morphine Allergy unk Verified 09/06/18 08:45 Penicillins Allergy unk Verified 09/06/18 08:45 Sulfa (Sulfonamide Allergy reasp Verified 09/06/18 08:45 Antibiotics) distress MOLD AND POLLEN Allergy Unknown Uncoded 09/06/18 08:45 Reaction Details PMH/Surg Hx/FS Hx/Imm Hx Previously Healthy: Yes Endocrine History: Hypothyroidism, Dyslipidemia Cardiovascular History: Hypertension, Atrial Fibrillation, Deep Vein Thrombosis GI/ History: Diverticulitis Other History Of: Anticoagulant Therapy Negative For: HIV, Hepatitis B, Hepatitis C - Surgical History Surgical History: Yes Surgery Procedure, Year, and Place: [facility]. 1992 & 1993 & 2009 [place] [facility] [place] R[place] [facility]. [place] [facility] 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 C -diff colitis - Family History Known Family History: Positive: Cardiac Disease, Hypertension - Social History Occupation: Retired Lives: With Family Alcohol Use: Occasionally Alcohol Amount: 1 GLASS OF WINE 1-2 TIMES PER WEEK Substance Use Type: None Smoking Status (MU): Former Smoker Amount Used/How Often: X 2 YEARS Have You Smoked in the Last Year: No When Did the Patient Quit Smoking/Using Tobacco: 1955 - Immunization History Most Recent Influenza Vaccination: 04/24 Most Recent Tetanus Shot: <5 YEARS Most Recent Pneumonia Vaccination: UP TO DATE Hx Tetanus, Diphtheria Vaccination: Yes Review of Systems All Other Systems Reviewed And Are Negative: Yes Constitutional: Positive: Negative Skin: Positive: Bruising - RT upper arm, Other - skin laceration of RT upper arm s/p dog scratch Eyes: Positive: Negative ENT: Positive: Negative Respiratory: Positive: Negative Cardiovascular: Positive: Negative Gastrointestinal: Positive: Negative Genitourinary: Positive: Negative Motor: Positive: Negative Neurovascular: Positive: Negative Musculoskeletal: Positive: Other: - RT upper arm pain s/p skin tear Neurological: Positive: Negative Psychological: Positive: Negative Is Patient Immunocompromised?: No Physical Exam - Summary Physical Exam Summary: Vital Signs Reviewed: Yes General: well developed, well nourished old female sitting in the examining table w/o any apparent distress Eye Exam: Normal Eyes: Positive: Conjunctiva Clear - PERRLA, EOMI, fundi grossly normal ENT: Positive: Normal ENT inspection, Hearing grossly normal, Pharynx normal, TMs normal Neck: Positive: Supple, Nontender, No Lymphadenopathy Respiratory: Positive: Chest non-tender, Lungs clear, Normal breath sounds, No respiratory distress Cardiovascular: Positive: RRR, No Murmur, Pulses Normal, Brisk Capillary Refill Abdomen Description: Positive: Nontender, No Organomegaly, Soft. Negative: CVA Tenderness (R), CVA Tenderness (L) Bowel Sounds: Positive: Present Musculoskeletal: Positive: Strength Intact, ROM Intact, No Edema Neurological: Positive: Alert, Muscle Tone Normal Psychological Exam: Normal Skin: Positive:Lateral side of RT distal upper arm , just above elbow with a skin avulsion tear about 2.5cm in size, irregular in shape, non bleeding, no foreign body observed. mild tenderness to palpation, mild ecchymosis and bruise around tear. FROM of RT arm, sensation intact, capillary refill brisk, and pulses WNL. Triage Information Reviewed: Yes Vital Signs: Initial Vital Signs Temp 98.7 F 09/06/18 08:42 Pulse 84 09/06/18 08:42 Resp 18 09/06/18 08:42 BP 149/95 09/06/18 08:42 Pulse Ox 98 09/06/18 08:42 Laceration Repair - Laceration Repair 1 Description: Stellate - superficial skin avulsion tear w/ irregular shape Laceration Size After Repair: Length (cm) - 2.5cm in size Modified For Repair: No Cleansing Completed Via Routine Prep: Yes Irrigation With Pressure Irrigation Device: Yes Closure Material: SteriStrips - and gelfoam Closure Method: Single Layer Suture Of: Skin Laceration Course/Dx - Course/Dx Course Of Treatment: 87 y/o female presents to the urgent care c/o Rt upper arm skin tear s/p dog scratch yesterday afternoon. Pt reports her daughter's dog came to greed her and accidentally scratched her upper arm. Dog is UT w/ all vaccines for her age and she is UTD w/ Tetanus vaccine. She irrigated well area and cover it w/ a big band aid. however this morning she went to her swimming class and removed the band-aid and skin tear began bleeding again since Pt is in [facility] for A-fib. Pain is 4/10 at touch. Pt can move Rt elbow and Rt arm w/o any problem, Pt denies fever, numbness or tingling sensation over the RT arm. She has mid bruise around wond w/ mild swelling. Pt denies SOB, CALVO, dizziness, Chest pain, abdominal pain, N/V/d. Hx obtained. Pt w/Lateral side of RT distal upper arm , just above elbow with a skin avulsion tear about 2.5cm in size, irregular in shape, non bleeding, no foreign body observed. mild tenderness to palpation, mild ecchymosis and bruise around tear. FROM of RT arm, sensation intact, capillary refill brisk, and pulses WNL on examination. LACERATION PROCEDURE NOTE: Copious irrigation was done with saline and the wound cleaned and explored. There was no FB or deep structure injury noted. Wounds cleaned saline water and then w/ Iodine swabs. The skin avulsion tear was covered w/ Gel foam and steri strips and then covered w/ sterile gauze. The Pt tolerated the procedure well without adverse effects. Neurovascular intact and FROM of RT elbow and arm. PtPCN allergic, thus Rx Clindamycin PO to prevent infection sicne dirty wound and advised to apply Bacitracin ointment and take Tylenol PO to alleviate symptoms. Pt advised if any signs of infection develop to immediately return to the urgent care of PCP for further management and treatment.Pt's BP is elevated today advised to decrease salt in diet, monitor BP and f/u with PCP for further management. Pt understood and agreed and left the clinic ambulating A&Ox3. . - Differential Dx - Laceration/Wound Differental Diagnoses: Abrasion, Avulsion, Cellulitis, Laceration, Puncture Wound, Tendon Laceration - Diagnosis Provider Diagnosis: Skin tear of right upper arm without complication, Uncontrolled hypertension Discharge - Sign-Out/Discharge Documenting (check all that apply): Patient Departure - D/c home All imaging exams completed and their final reports reviewed: No Studies - Discharge Plan Condition: Stable Disposition: HOME Prescriptions: Clindamycin Cap(NF) [Clindamycin Cap 300 mg Cap(NF)] 300 mg PO BID #14 cap Patient Education Materials: Skin Tear (ED) Referrals: Madai Salinas MD [Primary Care Provider] - 3 Days Additional Instructions: 1-Please take full course of antibiotic to avoid resistance to prevent infection. Take yogurt w/ probiotics or culturelle to protect your GI system 2- Keep wound clean and dry and avoid excessive movement w/ your elbow 3-Take Tylenol PO q6-8hrs prn for pain or swelling. 4- If you develop fever or redness around wound despite the antibiotic please go to the ER immediately or return to the Urgent care. 5- Your BP is elevated today. please decrease salt in your diet, monitor BP and if it continues to be elevated please f/u with your PCP for further management. - Billing Disposition and Condition Condition: STABLE Disposition: Home
[2018-09-06] MEDS ORDERED: Gelfoam 12-7 ADSORBABL SPONGE* 1 EA SPONGE TOPICAL ONE (09:23)
== END 2018-09-06 09:55 | disposition home or self-care (01) ==
LOC: UCEAST 08:29
DX: S41.111A Laceration without foreign body of right upper arm, initial encounter (principal); W54.1XXA Struck by dog, initial encounter; I10 Essential (primary) hypertension; I48.91 Unspecified atrial fibrillation; E78.5 Hyperlipidemia, unspecified; E03.9 Hypothyroidism, unspecified; Z88.6 Allergy status to analgesic agent; Z88.5 Allergy status to narcotic agent; Z88.0 Allergy status to penicillin; Z88.2 Allergy status to sulfonamides; Z86.718 Personal history of other venous thrombosis and embolism; Z79.01 Long term (current) use of anticoagulants
CPT/HCPCS: 12001; 99212; A9270-GY; G0463

== ENCOUNTER 2019-01-14 07:44 | Emergency (ER) | payer MEDICARE, BC, OTHER ==
--- OUTSIDE RECORDS SUMMARY | 2019-01-14 07:54 | XMS REPORT | Continuity of Care Document ---
:1930 External Reference #:[id number] Author Name Indu Sy Care Team Providers Name Role Phone Madai Salinas MD Primary Care Physician Unavailable Payers Date Identification Numbers Payment Provider Subscriber Policy Number: [id number] Medicare Jennifer Dang PayID: [id number] [address] [place] [address] Effective: 1995 Policy Number: [id number] Medicare Jennifer Dang Expires: 2018 PayID: [id number] [address] [place] [address] Policy Number: [id number] Lifetime Benefit Solution Jennifer Dang Group Number: [id number] [id number] PayID: [id number] Problems Active Problems Provider Date Atrial fibrillation Sebastian Gallardo M.D. Onset: 03/23/2013 Postoperative Wound Closure Sebastian Gallardo M.D. Onset: 04/13/2013 Encounter Clostridium difficile infection Vikas Smiley M.D. Onset: 09/21/2015 Disturbance in sleep behavior Azra Carrero MD Onset: 04/04/2016 Periodic leg movements of sleep Arminda Hill DNP, RN, Onset: 05/07/2016 [facility] Localized, primary osteoarthritis Reema Gilmore M.D. Onset: 05/24/2018 Family History Date Family Member(s) Observation Comments General No Current Problems Father due to Father had arthritis and brother had () arthritis Mother Non contributory at age 75 Social History Type Date Description Comments Sex Unknown Marital Status Lives With Alone Occupation Retired Tobacco Use Start: Unknown End: Former Cigarette Smoker Unknown Smoking Status Reviewed: 12/29/18 Former Cigarette Smoker ETOH Use Currently consumes 2 x/week alcohol Tobacco Use Start: Unknown End: Patient is a former quit in late Unknown smoker Recreational Drug Use Denies Drug Use Exercise Type/Frequency Exercises regularly Allergies, Adverse Reactions, Alerts Active Allergies Reaction Severity Comments Date Aspirin 03/23/2013 Sulfa Antibiotics rash 03/23/2013 Morphine nausea Moderate 03/23/2013 Penicillin rash 03/23/2013 Medications Active Medications SIG Qnty Indications Ordering Date Provider Knee Brace/Flexible please provide 1units M17.11 Ck Meraz, 05/18/2018 Stays/Medium lateral knee [place] [facility] [place] icd9 code 715.96 (right, with lateral cas support) Spironolactone 1 by mouth 90tabs I42.9 Sebastian Leland 12/24/2016 25mg Tablets every day Susan Gallardo Plaquenil take one 90tabs M06.4 Ck Meraz, 10/19/2015 200mg Tablets capsule/tablet M.DJulianna daily by mouth Eliquis 1 tab by mouth Madai Salinas 2.5mg Tablets twice daily MD Noemy Qvar Redihaler 2 puff twice a Unknown 40mcg/Act day Aerosol Losartan Potassium 1 by mouth 90tabs Sebastian D. 50mg every day Sami MLeana Tablets Qnasl as needed Unknown 80mcg/Act Aerosol Breo Ellipta 1 puff inhaled Unknown 100-25mcg/Inh daily Aerosol Fluticasone Propionate instill 2 Unknown sprays into 50mcg/Act Suspension each nostril daily During Spring Season With Exp Xopenex HFA inhale two Unknown 45mcg/Act Aerosol puffs by mouth every four hours as needed (pt not using) Cranberry every day by Unknown 200mg Capsules mouth Vitamin B-12 1 by mouth Unknown Tablets every day Metoprolol Succinate ER take 1 tablet 90tabs Sebastian DJulianna 25mg by mouth every Sami, Susan Tablets ER 24HR day Montelukast Sodium 1 by mouth Unknown 10mg every day Tablets Tylenol prn Unknown 325mg Tablets Multiple Vitamins 1 po qd Unknown Tablets Levocetirizine take 1 tablet Unknown Dihydrochloride by mouth once 5mg Tablets daily if needed Levothyroxine Sodium po qd Unknown 75mcg Atorvastatin Calcium 1 tablet po 90tabs Unknown 10mg daily Tablets History Medications Cozaar on tab a day 90tabs I50.9 Sebastian Ha 09/30/2017 - 50mg Tablets Susan Gallardo 10/13/2017 Golytely 1l, drink 8 oz 1bottle A04.7 Jarod Ha 10/10/2015 - 236gm Solution every 20 minutes Susan Dumont 10/30/2015 Rec until clear bowel movements Voltaren apply 2 grams 200gm M65.872 Ck Meraz 09/28/2015 - 1% Gel twice daily as Susan 10/28/2015 needed for pain to the ankle, okay to try as you tolerated alleve in the past Metronidazole one tablet by 30tasusana Ha 09/13/2015 - 500mg mouth 3 times Susan Dumont 09/24/2015 Tablets daily for 10 days Xarelto 1 po qd 30tabs Sebastian Ha 03/29/2013 - 20mg Tablets Susan Gallardo 06/08/2014 Xarelto 1 by mouth every Unknown - 20mg Tablets day 07/06/2018 Cephalexin Take 2 Capsules By Unknown - 500mg Mouth Twice A Day 09/24/2015 Capsules For 7 Days Vancomycin HCL 1 by mouth four 120caps Jarod Ha - 125mg times a day, stop Susan Dumont 11/12/2015 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 Potassium Chloride ER take 1 capsule by Unknown - mouth once daily 12/24/2016 20Meq Capsules ER Furosemide take 1 tablet by Unknown - 40mg Tablets mouth once daily 12/24/2016 Probiotic 1 by mouth every Unknown - Capsules day 05/19/2016 Tramadol HCL 1-2 tablets every Unknown - 50mg 6 hours as needed 04/03/2016 Tablets Nitrofurantoin take 1 capsule by Unknown - Macrocrystal mouth twice a day 05/10/2016 50mg Capsules Tramadol HCL 1-2 tablets every Unknown - 50mg 6 hours as needed 09/29/2017 Tablets (pt not using) Lasix 1 by mouth every Unknown - 40mg Tablets day 02/24/2017 Probiotic 1 by mouth every Unknown - Capsules day 11/25/2017 Lisinopril 1 by mouth every I50.9 Unknown - 5mg Tablets day 09/30/2017 Cozaar Unknown - 07/06/2018 Lipitor Unknown - 07/06/2018 Xarelto take 1 tablet by Unknown - 15mg Tablets mouth once daily 12/28/2018 Cephalexin one by mouth two Unknown - 500mg times daily 09/10/2015 Tablets Flagyl 1 by mouth three Unknown - 500mg Tablets times a day 09/10/2015 Xyzal 1 by mouth every Unknown - 5mg Tablets day 10/19/2015 Alavert as needed Unknown - 10/30/2015 Xopenex HFA 2 puffs every 4 1Month Unknown - 45mcg/Act hours as needed 04/03/2016 Aerosol for shortness of breath Qnasl 2 inhalations in 8.700gm Unknown - 80mcg/Act Aerosol each nostril once 10/30/2015 daily prn Qvar 4 puff twice a day Unknown - 80mcg/Act Aerosol as needed 07/13/2017 Dymista Instill 1 [place] In Unknown - 137-50mcg/Act Nostril 2 Times A 02/14/2014 Day Pataday instill one drop 2.500ml Unknown - 0.2% Solution into each eye 10/30/2015 daily prn Proair HFA 2 puffs q4h prn Unknown - 02/14/2014 Alvesco 1 puff bid Unknown - 02/14/2014 Nasonex 2 sprays to each 1units Unknown - 50mcg/Act nostril twice 04/12/2013 Suspension daily Singulair 1 po qd 90tabs Unknown - 10mg Tablets 04/12/2013 Pradaxa 1 cap by mouth 180caps Unknown - 150mg Capsules twice a day 03/29/2013 Desloratadine 1 po qd 30tabs Unknown - 5mg 02/14/2014 Tablets Famotidine 1 po qd 60tabs Unknown - 20mg Tablets 02/14/2014 Medications Administered in Office Medication SIG Qnty Indications Ordering Provider Date Depomedrol 40MG Reema Gilmore M.D. 09/01/2018 Injection Depomedrol 40MG Reema Gilmore M.D. 06/14/2018 Injection Triamcinolone (Kenalog) Ck Meraz M.D. 05/03/2018 Injection Triamcinolone (Kenalog) Ck Meraz M.D. 11/25/2017 Injection Triamcinolone (Kenalog) Ck Meraz M.D. 07/13/2017 Injection Triamcinolone (Kenalog) Ck Meraz M.D. 07/13/2017 Injection Triamcinolone (Kenalog) Ck Meraz M.D. 07/13/2017 Injection Depomedrol 80MG NIMO Andrade 03/21/2015 Injection Celestone 3 mg and 3mg Jovany Livingston M.D. 10/03/2014 Injection Depomedrol 80MG Jovany Livingston M.D. 05/13/2011 Injection Immunizations CPT Code Status Date Vaccine Lot # [id number] Given 03/12/2015 Influenza Virus Vaccine, Quadrivalent, Split, Preservative Free Vital Signs Date Vital Result Comment 12/29/2018 8:53am Height 63 inches 5'3" Weight 135.00 lb Heart Rate 95 /min BP Systolic Sitting 96 mmHg BP Diastolic Sitting 72 mmHg Respiratory Rate 14 /min Pain Level 6 BMI (Body Mass Index) 23.9 kg/m2 12/22/2018 8:56am Height 63 inches 5'3" Weight 133.00 lb BP Systolic 102 mmHg BP Diastolic 62 mmHg Respiratory Rate 15 /min Body Temperature 96.6 F Pain Level 2 BMI (Body Mass Index) 23.6 kg/m2 09/15/2018 2:14pm Height 63 inches 5'3" Weight 133.12 lb Heart Rate 65 /min BP Systolic 120 mmHg BP Diastolic 78 mmHg Pain Level 5 O2 % BldC Oximetry 95 % BMI (Body Mass Index) 23.6 kg/m2 09/01/2018 9:11am Height 63 inches 5'3" Weight 134.00 lb Heart Rate 66 /min Body Temperature 96.1 F O2 % BldC Oximetry 76 % BMI (Body Mass Index) 23.7 kg/m2 07/07/2018 10:27am Height 62 inches 5'2" Weight 130.00 lb with shoes Heart Rate 60 /min BP Systolic Sitting 122 mmHg Lue reg cuff BP Diastolic Sitting 60 mmHg Lue reg cuff BP Systolic Standing 122 mmHg LUe reg cuff BP Diastolic Standing 68 mmHg LUe reg cuff Respiratory Rate 16 /min BMI (Body Mass Index) 23.8 kg/m2 Ejection Fraction 20-25% date 12/05/15 echo 07/05/2018 10:37am Height 62 inches 5'2" Heart Rate 50 /min BP Systolic 118 mmHg BP Diastolic 72 mmHg Body Temperature 97.3 F Pain Level 3 06/14/2018 10:30am Height 62 inches 5'2" Weight 133.00 lb BP Systolic 120 mmHg BP Diastolic 76 mmHg Respiratory Rate 16 /min Pain Level 3 BMI (Body Mass Index) 24.3 kg/m2 05/24/2018 8:57am Height 62 inches 5'2" Weight 136.00 lb Heart Rate 84 /min BP Systolic 124 mmHg BP Diastolic 82 mmHg Body Temperature 97.1 F Pain Level 4 BMI (Body Mass Index) 24.9 kg/m2 05/18/2018 9:01am Height 62 inches 5'2" Weight 136.25 lb Heart Rate 56 /min BP Systolic 110 mmHg BP Diastolic 64 mmHg Pain Level 4 O2 % BldC Oximetry 94 % BMI (Body Mass Index) 24.9 kg/m2 05/03/2018 2:25pm Height 62 inches 5'2" Weight 137.38 lb Heart Rate 53 /min BP Systolic 108 mmHg BP Diastolic 60 mmHg Pain Level 5 O2 % BldC Oximetry 94 % BMI (Body Mass Index) 25.1 kg/m2 04/14/2018 1:06pm Height 62 inches 5'2" Weight 137.12 lb Heart Rate 49 /min BP Systolic Sitting 95 mmHg BP Diastolic Sitting 66 mmHg Respiratory Rate 16 /min Pain Level 4 BMI (Body Mass Index) 25.1 kg/m2 12/30/2017 11:21am Height 62 inches 5'2" Heart Rate 60 /min BP Systolic Sitting 110 mmHg lue reg cuff BP Diastolic Sitting 62 mmHg lue reg cuff BP Systolic Standing 100 mmHg BP Diastolic Standing 60 mmHg Respiratory Rate 18 /min Ejection Fraction 20-25% 12/05/2015 echo 12/02/2017 3:00pm Height 62 inches 5'2" Weight 136.00 lb with shoes Heart Rate 56 /min BP Systolic Sitting 110 mmHg Lue reg cuff BP Diastolic Sitting 72 mmHg Lue reg cuff BP Systolic Standing 110 mmHg Lue reg cuff BP Diastolic Standing 70 mmHg Lue reg cuff Respiratory Rate 16 /min BMI (Body Mass Index) 24.9 kg/m2 Ejection Fraction 20-25% 12/05/2015-echo 11/25/2017 10:08am Height 62 inches 5'2" Weight 134.12 lb Heart Rate 60 /min BP Systolic Sitting 122 mmHg BP Diastolic Sitting 70 mmHg Respiratory Rate 14 /min Pain Level 1 BMI (Body Mass Index) 24.5 kg/m2 10/12/2017 2:32pm Height 62 inches 5'2" Weight 133.12 lb Heart Rate 68 /min BP Systolic Sitting 112 mmHg BP Diastolic Sitting 74 mmHg Respiratory Rate 20 /min Pain Level 2 BMI (Body Mass Index) 24.3 kg/m2 09/30/2017 10:56am Height 62 inches 5'2" Weight 133.00 lb with shoes Heart Rate 80 /min irreg BP Systolic Sitting 112 mmHg Lue reg cuff BP Diastolic Sitting 78 mmHg Lue reg cuff BP Systolic Standing 114 mmHg Lue reg cuff BP Diastolic Standing 80 mmHg Lue reg cuff Respiratory Rate 18 /min BMI (Body Mass Index) 24.3 kg/m2 Ejection Fraction 20-25% date 09/07/17 ECHO 07/13/2017 10:27am Height 62 inches 5'2" Weight 143.00 lb Heart Rate 64 /min BP Systolic Sitting 134 mmHg BP Diastolic Sitting 96 mmHg Respiratory Rate 14 /min Pain Level 2 BMI (Body Mass Index) 26.2 kg/m2 06/24/2017 3:46pm Height 62 inches 5'2" Weight 138.00 lb without shoes Heart Rate 66 /min BP Systolic Sitting 152 mmHg Rue reg cuff BP Diastolic Sitting 90 mmHg Rue reg cuff BP Systolic Standing 146 mmHg Rue reg cuff BP Diastolic Standing 80 mmHg Rue reg cuff Respiratory Rate 16 /min BMI (Body Mass Index) 25.2 kg/m2 Ejection Fraction 20-25% date 12/05/15 ECHO 03/25/2017 8:38am Height 62 inches 5'2" Weight 140.00 lb with shoes Heart Rate 54 /min BP Systolic Sitting 134 mmHg Lue reg cuff BP Diastolic Sitting 78 mmHg Lue reg cuff BP Systolic Standing 136 mmHg Lue reg cuff BP Diastolic Standing 80 mmHg Lue reg cuff Respiratory Rate 16 /min BMI (Body Mass Index) 25.6 kg/m2 Ejection Fraction 20-25% 12/05/2015-echo 02/25/2017 10:04am Height 62 inches 5'2" Weight 140.25 lb Heart Rate 60 /min BP Systolic Sitting 142 mmHg BP Diastolic Sitting 84 mmHg Respiratory Rate 16 /min Body Temperature 97.4 F Pain Level 1 while sitting still BMI (Body Mass Index) 25.6 kg/m2 01/08/2017 10:01am Height 62 inches 5'2" Weight 136.50 lb with shoes Heart Rate 64 /min BP Systolic Sitting 120 mmHg Lue reg cuff BP Diastolic Sitting 60 mmHg Lue reg cuff BP Systolic Standing 110 mmHg Lue reg cuff BP Diastolic Standing 64 mmHg Lue reg cuff Respiratory Rate 16 /min BMI (Body Mass Index) 25.0 kg/m2 12/24/2016 8:51am Height 62 inches 5'2" Weight 139.00 lb w/ shoes Heart Rate 64 /min reg BP Systolic Sitting 110 mmHg Lue, reg cuff BP Diastolic Sitting 70 mmHg Lue, reg cuff BP Systolic Standing 114 mmHg Lue BP Diastolic Standing 74 mmHg Lue Respiratory Rate 16 /min BMI (Body Mass Index) 25.4 kg/m2 Ejection Fraction 20-25% as of 12/05/15 echo 08/25/2016 8:53am Height 62 inches 5'2" Weight 138.25 lb Heart Rate 50 /min BP Systolic Sitting 166 mmHg BP Diastolic Sitting 92 mmHg Respiratory Rate 14 /min Body Temperature 96.5 F Pain Level 1 BMI (Body Mass Index) 25.3 kg/m2 06/11/2016 8:48am Height 62 inches 5'2" Weight 141.00 lb w/o shoes Heart Rate 66 /min reg BP Systolic Sitting 130 mmHg Lue, reg cuff BP Diastolic Sitting 76 mmHg Lue, reg cuff BP Systolic Standing 132 mmHg Lue BP Diastolic Standing 76 mmHg Lue Respiratory Rate 16 /min BMI (Body Mass Index) 25.8 kg/m2 Ejection Fraction 20-25% as of 12/05/15 echo 05/07/2016 1:25pm Height 62 inches 5'2" Weight 132.00 lb Heart Rate 60 /min BP Systolic Sitting 132 mmHg BP Diastolic Sitting 76 mmHg Respiratory Rate 14 /min O2 % BldC Oximetry 97 % BMI (Body Mass Index) 24.1 kg/m2 04/11/2016 10:07am Height 62 inches 5'2" Weight 138.00 lb Heart Rate 96 /min BP Systolic Sitting 130 mmHg BP Diastolic Sitting 80 mmHg Body Temperature 96.8 F Pain Level 2 BMI (Body Mass Index) 25.2 kg/m2 04/04/2016 10:17am Height 62 inches 5'2" Weight 130.00 lb Heart Rate 64 /min BP Systolic Sitting 119 mmHg BP Diastolic Sitting 62 mmHg Respiratory Rate 14 /min O2 % BldC Oximetry 97 % BMI (Body Mass Index) 23.8 kg/m2 Neck Circumference in inches 13 01/07/2016 11:09am Height 63.5 inches 5'3.50" Weight 128.00 lb Heart Rate 60 /min BP Systolic Sitting 110 mmHg BP Diastolic Sitting 60 mmHg Respiratory Rate 14 /min Body Temperature 98.4 F Pain Level 2 BMI (Body Mass Index) 22.3 kg/m2 12/04/2015 11:37am Height 63.5 inches 5'3.50" Weight 129.00 lb Heart Rate 60 /min BP Systolic Sitting 138 mmHg BP Diastolic Sitting 72 mmHg Respiratory Rate 14 /min Body Temperature 97.6 F BMI (Body Mass Index) 22.5 kg/m2 11/28/2015 9:41am Height 63.5 inches 5'3.50" Weight 120.00 lb w/o shoes Heart Rate 44 /min BP Systolic 150 mmHg Lue recheck BP Diastolic 80 mmHg Lue recheck BP Systolic Sitting 160 mmHg Lue, reg cuff BP Diastolic Sitting 110 mmHg Lue, reg cuff Respiratory Rate 14 /min O2 % BldC Oximetry 87 % on Ra BMI (Body Mass Index) 20.9 kg/m2 Ejection Fraction 20-25% as of 10/12/15 echo 11/12/2015 10:53am Height 63.5 inches 5'3.50" Weight 136.00 lb Heart Rate 76 /min BP Systolic Sitting 120 mmHg BP Diastolic Sitting 70 mmHg Body Temperature 97.7 F Pain Level 2 BMI (Body Mass Index) 23.7 kg/m2 10/31/2015 1:57pm Height 63.5 inches 5'3.50" Weight 130.00 lb Heart Rate 84 /min BP Systolic Sitting 110 mmHg left arm, reg cuff BP Diastolic Sitting 64 mmHg left arm, reg cuff BP Systolic Standing 92 mmHg left arm, reg cuff BP Diastolic Standing 64 mmHg left arm, reg cuff Respiratory Rate 16 /min BMI (Body Mass Index) 22.7 kg/m2 Ejection Fraction 20-25% 10/12/15 10/19/2015 10:02am Height 63.5 inches 5'3.50" Weight 128.00 lb Heart Rate 76 /min BP Systolic Sitting 110 mmHg BP Diastolic Sitting 70 mmHg Body Temperature 97.5 F Pain Level 3 BMI (Body Mass Index) 22.3 kg/m2 10/10/2015 1:21pm Height 63.5 inches 5'3.50" Weight 132.00 lb Heart Rate 110 /min BP Systolic Sitting 130 mmHg BP Diastolic Sitting 80 mmHg Respiratory Rate 14 /min Body Temperature 98.4 F O2 % BldC Oximetry 94 % BMI (Body Mass Index) 23.0 kg/m2 09/28/2015 10:00am Height 63.5 inches 5'3.50" Heart Rate 84 /min BP Systolic Sitting 124 mmHg BP Diastolic Sitting 80 mmHg Respiratory Rate 16 /min Pain Level 4 09/25/2015 10:02am Height 63.5 inches 5'3.50" Weight 132.00 lb Heart Rate 98 /min BP Systolic Sitting 148 mmHg BP Diastolic Sitting 80 mmHg Respiratory Rate 14 /min Body Temperature 97.5 F BMI (Body Mass Index) 23.0 kg/m2 09/21/2015 11:31am Height 63.5 inches 5'3.50" Weight 133.00 lb Heart Rate 76 /min BP Systolic Sitting 156 mmHg BP Diastolic Sitting 92 mmHg Respiratory Rate 18 /min Pain Level 5 BMI (Body Mass Index) 23.2 kg/m2 09/11/2015 10:08am Height 62.25 inches 5'2.25" Weight 138.00 lb Heart Rate 69 /min BP Systolic Sitting 128 mmHg BP Diastolic Sitting 86 mmHg Respiratory Rate 14 /min Body Temperature 99.0 F O2 % BldC Oximetry 96 % BMI (Body Mass Index) 25.0 kg/m2 09/04/2015 10:57am Height 62.25 inches 5'2.25" Weight 148.50 lb Heart Rate 92 /min BP Systolic Sitting 142 mmHg BP Diastolic Sitting 92 mmHg Respiratory Rate 16 /min Body Temperature 97.6 F BMI (Body Mass Index) 26.9 kg/m2 03/21/2015 8:25am Height 62.25 inches 5'2.25" Weight 132.00 lb Pain Level 5 constant BMI (Body Mass Index) 23.9 kg/m2 10/31/2014 2:46pm Height 62.25 inches 5'2.25" Weight 130.00 lb Pain Level 1 Much better since Celestone injection BMI (Body Mass Index) 23.6 kg/m2 10/03/2014 9:09am Height 62.25 inches 5'2.25" Weight 130.00 lb Pain Level 5 BMI (Body Mass Index) 23.6 kg/m2 03/22/2014 11:36am Height 62.25 inches 5'2.25" Weight 136.00 lb with out shoes Heart Rate 60 /min BP Systolic Sitting 150 mmHg LA reg cuff BP Diastolic Sitting 90 mmHg LA reg cuff BP Systolic Standing 148 mmHg LA reg cuff BP Diastolic Standing 90 mmHg LA reg cuff Respiratory Rate 16 /min BMI (Body Mass Index) 24.7 kg/m2 02/15/2014 9:18am Height 62.5 inches 5'2.50" Weight 132.00 lb Heart Rate 64 /min BMI (Body Mass Index) 23.8 kg/m2 04/13/2013 11:06am Height 62.5 inches 5'2.50" Weight 134.00 lb Heart Rate 60 /min BP Systolic Sitting 158 mmHg Ra reg cuff BP Diastolic Sitting 84 mmHg Ra reg cuff BP Systolic Standing 150 mmHg Ra BP Diastolic Standing 80 mmHg Ra Respiratory Rate 18 /min BMI (Body Mass Index) 24.1 kg/m2 03/23/2013 3:55pm Height 61.5 inches 5'1.50" Weight 134.00 lb down 1 lb Heart Rate 64 /min BP Systolic Sitting 138 mmHg LA reg cuff BP Diastolic Sitting 80 mmHg LA reg cuff BP Systolic Standing 138 mmHg LA BP Diastolic Standing 84 mmHg LA Respiratory Rate 16 /min BMI (Body Mass Index) 24.9 kg/m2 Results Test Date Facility Test Result H/L Range Note Laboratory test 05/04/2018 [facility] C Reactive 4.04 mg/L N < 8.[address] [place] [address] [phone] Erythrocyte Sed Rate 10 mm/Hr N 0-40 CBC Auto Diff 05/04/2018 [facility] White Blood 8.4 10^3/uL N 3.5-10.[address] [place] [address] [phone] Red Blood Count 4.05 10^6/uL N 4.00-5.40 Hemoglobin 12.4 g/dL N 12.0-16.0 Hematocrit 37 % N 35-47 Mean Corpuscular Volume 92 fL N 80-97 Mean Corpuscular Hemoglobin 31 pg N 27-31 Mean Corpuscular HGB Conc 34 g/dL N 31-36 Red Cell Distribution Width 14 % N 10.5-15 Platelet Count 241 10^3/uL N 150-450 Mean Platelet Volume 8.3 fL N 7.4-10.4 Abs Neutrophils 5.7 10^3/uL N 1.5-7.7 Abs Lymphocytes 1.2 10^3/uL N 1.0-4.8 Abs Monocytes 1.1 10^3/uL High 0-0.8 Abs Eosinophils 0.3 10^3/uL N 0-0.6 Abs Basophils 0.1 10^3/uL N 0-0.2 Abs Nucleated RBC 0 10^3/uL Granulocyte % 68.3 % Lymphocyte % 13.8 % Monocyte % 13.7 % Eosinophil % 3.2 % Basophil % 1.0 % Nucleated Red Blood Cells % 0.1 Comp Metabolic Panel 05/04/2018 [facility] Sodium 138 mmol/L N 135-[address] [place] [address] [phone] Potassium 4.6 mmol/L N 3.5-5.0 Chloride 103 mmol/L N 101-111 Co2 Carbon Dioxide 25 mmol/L N 22-32 Anion Gap 10 mmol/L N 2-11 Glucose 78 mg/dL N 70-100 Blood Urea Nitrogen 29 mg/dL High 6-24 Creatinine 1.22 mg/dL High 0.51-0.95 BUN/Creatinine Ratio 23.8 High 8-20 Calcium 9.3 mg/dL N 8.6-10.3 Total Protein 6.5 g/dL N 6.4-8.9 Albumin 4.2 g/dL N 3.2-5.2 Globulin 2.3 g/dL N 2-4 Albumin/Globulin Ratio 1.8 N 1-3 Total Bilirubin 0.60 mg/dL N 0.2-1.0 Alkaline Phosphatase 73 U/L N 34-104 Alt 17 U/L N 7-52 Ast 20 U/L N 13-39 Egfr Non- 41.7 >60 Egfr 50.4 >60 1 Laboratory test 04/14/2018 [facility] Body Fluid SEE RESULT [address] C&S BELOW [place], [place] [id number] [phone] Body Fluid Crystals None Seen None Seen 3 Body Fluid Cell 04/14/2018 [facility] Body Fluid Synovial Fluid Count [address] [place] [address] [phone] Body Fluid WBC 1531 /mcL N 4 Body Fluid RBC 6574 /mcL Body Fluid Appearance Cloudy Body Fluid Color Yellow Body Fluid Volume 9 mL Body Fluid Neutrophils 8 % Body Fluid Lymph 89 % Body Fluid Craig 3 % Body Fluid Total Cells Counted 100 Fluid Reviewed By MD (SEE NOTE) 5 Body Fluid Cell 11/25/2017 [facility] Body Fluid Synovial Fluid Count [address] Source [place], [place] [id number] [phone] Body Fluid Appearance Cloudy Body Fluid Color Yellow Body Fluid Volume 7 mL Body Fluid WBC 531 /mcL N 6 Body Fluid RBC 211 /mcL Body Fluid Neutrophils 80 % Body Fluid Lymph 1 % Body Fluid Craig 19 % Body Fluid Total Cells Counted 100 Fluid Reviewed By MD (SEE NOTE) 7 Laboratory test 11/25/2017 [facility] Body Fluid None Seen None Seen [address] C[place], [place] [id number] [phone] Body Fluid C&S 11/25/2017 [facility] Body Fluid SEE RESULT [address] [place] [address] Stain [phone] Comp Metabolic 11/23/2017 [facility] Sodium 138 mmol/L N 135- [address] [place], [place] [id number] [phone] Potassium 4.3 mmol/L N 3.5-5.0 Chloride 106 mmol/L N 101-111 Co2 Carbon Dioxide 24 mmol/L N 22-32 Anion Gap 8 mmol/L N 2-11 Glucose 116 mg/dL High 70-100 Blood Urea Nitrogen 21 mg/dL N 6-24 Creatinine 1.05 mg/dL High 0.51-0.95 BUN/Creatinine Ratio 20.0 N 8-20 Calcium 9.0 mg/dL N 8.6-10.3 Total Protein 5.8 g/dL Low 6.4-8.9 Albumin 3.7 g/dL N 3.2-5.2 Globulin 2.1 g/dL N 2-4 Albumin/Globulin Ratio 1.8 N 1-3 Total Bilirubin 0.70 mg/dL N 0.2-1.0 Alkaline Phosphatase 63 U/L N 34-104 Alt 17 U/L N 7-52 Ast 17 U/L N 13-39 Egfr Non- 49.7 >60 Egfr 63.9 >60 10 CBC Auto 11/23/2017 [facility] White Blood 13.5 10^3/uL High 3.5-10.[address] [place] [address] [phone] Red Blood Count 4.00 10^6/uL N 4.00-5.40 Hemoglobin 12.3 g/dL N 12.0-16.0 Hematocrit 37 % N 35-47 Mean Corpuscular Volume 92 fL N 80-97 Mean Corpuscular Hemoglobin 31 pg N 27-31 Mean Corpuscular HGB Conc 33 g/dL N 31-36 Red Cell Distribution Width 16 % High 10.5-15 Platelet Count 207 10^3/uL N 150-450 Mean Platelet Volume 8.1 um3 N 7.4-10.4 Abs Neutrophils 11.4 10^3/uL High 1.5-7.7 Abs Lymphocytes 0.9 10^3/uL Low 1.0-4.8 Abs Monocytes 0.9 10^3/uL High 0-0.8 Abs Eosinophils 0.2 10^3/uL N 0-0.6 Abs Basophils 0.1 10^3/uL N 0-0.2 Abs Nucleated RBC 0 10^3/uL Granulocyte % 84.5 % High 38-83 Lymphocyte % 6.4 % Low 25-47 Monocyte % 7.0 % N 0-7 Eosinophil % 1.2 % N 0-6 Basophil % 0.9 % N 0-2 Nucleated Red Blood Cells % 0.3 Laboratory test 11/23/2017 [facility] Erythrocyte Sed 7 mm/Hr N 0-40 [address] [place] [address] [phone] C Reactive Protein 4.15 mg/L N < 5.00 12 Basic Metabolic Panel 01/02/2017 [facility] Sodium 136 mmol/L N 133-[address] [place] [address] [phone] Potassium 4.2 mmol/L N 3.5-5.0 Chloride 105 mmol/L N 101-111 Co2 Carbon Dioxide 25 mmol/L N 22-32 Anion Gap 6 mmol/L N 2-11 Glucose 105 mg/dL High 70-100 Blood Urea Nitrogen 17 mg/dL N 6-24 Creatinine 1.02 mg/dL High 0.51-0.95 BUN/Creatinine Ratio 16.7 N 8-20 Calcium 8.9 mg/dL N 8.6-10.3 Egfr Non- 51.4 N >60 Egfr 66.1 N >60 13 Laboratory test 04/03/2016 [facility] TSH (Thyroid 2.23 mcIU/mL N 0.34-5.60 [address] Stim [place]orm) [place] [address] [phone] Vitamin B12 1086 pg/mL High 180-914 15 Laboratory test 04/03/2016 [facility] Erythrocyte Sed 25 mm/Hr N 0-40 [address] [place] [address] [phone] C Reactive Protein 8.48 mg/L High < 5.00 17 CBC Auto Diff 04/03/2016 [facility] White Blood 8.1 10^3/uL N 3.5-10.[address] [place] [address] [phone] Red Blood Count 4.55 10^6/uL N 4.0-5.4 Hemoglobin 13.2 g/dL N 12.0-16.0 Hematocrit 40 % N 35-47 Mean Corpuscular Volume 89 fL N 80-97 Mean Corpuscular Hemoglobin 29 pg N 27-31 Mean Corpuscular HGB Conc 33 g/dL N 31-36 Red Cell Distribution Width 16 % High 10.5-15 Platelet Count 241 10^3/uL N 150-450 Mean Platelet Volume 9 um3 N 7.4-10.4 Abs Neutrophils 5.4 10^3/uL N 1.5-7.7 Abs Lymphocytes 1.3 10^3/uL N 1.0-4.8 Abs Monocytes 1.0 10^3/uL High 0-0.8 Abs Eosinophils 0.2 10^3/uL N 0-0.6 Abs Basophils 0.2 10^3/uL N 0-0.2 Abs Nucleated RBC 0.02 10^3/uL N Granulocyte % 66.5 % N 38-83 Lymphocyte % 15.9 % Low 25-47 Monocyte % 12.9 % High 1-9 Eosinophil % 2.7 % N 0-6 Basophil % 2.0 % N 0-2 Nucleated Red Blood Cells % 0.2 N Comp Metabolic Panel 04/03/2016 [facility] Sodium 138 mmol/L N 133-[address] [place] [address] [phone] Potassium 3.9 mmol/L N 3.5-5.0 Chloride 102 mmol/L N 101-111 Co2 Carbon Dioxide 30 mmol/L N 22-32 Anion Gap 6 mmol/L N 2-11 Glucose 91 mg/dL N 70-100 Blood Urea Nitrogen 22 mg/dL N 6-24 Creatinine 0.99 mg/dL High 0.51-0.95 BUN/Creatinine Ratio 22.2 High 8-20 Calcium 9.4 mg/dL N 8.6-10.3 Total Protein 7.1 g/dL N 6.4-8.9 Albumin 4.0 g/dL N 3.2-5.2 Globulin 3.1 g/dL N 2-4 Albumin/Globulin Ratio 1.3 N 1-3 Total Bilirubin 0.50 mg/dL N 0.2-1.0 Alkaline Phosphatase 78 U/L N 34-104 Alt 21 U/L N 7-52 Ast 23 U/L N 13-39 Egfr Non- 53.3 N >60 Egfr 68.6 N >60 18 Laboratory test 11/28/2015 [facility] B-Type 669 pg/mL High [address] [place] [address] Peptide BNP [phone] Comp Metabolic 11/22/2015 [facility] Sodium 135 mmol/L N 133- [address] [place] [address] [phone] Potassium 4.1 mmol/L N 3.5-5.0 Chloride 103 mmol/L N 101-111 Co2 Carbon Dioxide 24 mmol/L N 22-32 Anion Gap 8 mmol/L N 2-11 Glucose 93 mg/dL N 70-100 Blood Urea Nitrogen 24 mg/dL N 6-24 Creatinine 0.95 mg/dL N 0.51-0.95 BUN/Creatinine Ratio 25.3 High 8-20 Calcium 9.3 mg/dL N 8.6-10.3 Total Protein 6.7 g/dL N 6.4-8.9 Albumin 3.9 g/dL N 3.2-5.2 Globulin 2.8 g/dL N 2-4 Albumin/Globulin Ratio 1.4 N 1-3 Total Bilirubin 0.50 mg/dL N 0.2-1.0 Alkaline Phosphatase 75 U/L N 34-104 Alt 19 U/L N 7-52 Ast 19 U/L N 13-39 Egfr Non- 56.0 N >60 Egfr 72.1 N >60 20 CBC Auto Diff 11/22/2015 [facility] White Blood 8.5 10^3/uL N 3.5-10.[address] [place] [address] [phone] Red Blood Count 4.28 10^6/uL N 4.0-5.4 Hemoglobin 11.5 g/dL Low 12.0-16.0 Hematocrit 36 % N 35-47 Mean Corpuscular Volume 83 fL N 80-97 Mean Corpuscular Hemoglobin 27 pg N 27-31 Mean Corpuscular HGB Conc 32 g/dL N 31-36 Red Cell Distribution Width 18 % High 10.5-15 Platelet Count 265 10^3/uL N 150-450 Mean Platelet Volume 8 um3 N 7.4-10.4 Abs Neutrophils 5.8 10^3/uL N 1.5-7.7 Abs Lymphocytes 1.5 10^3/uL N 1.0-4.8 Abs Monocytes 1.0 10^3/uL High 0-0.8 Abs Eosinophils 0.1 10^3/uL N 0-0.6 Abs Basophils 0.1 10^3/uL N 0-0.2 Abs Nucleated RBC 0.01 10^3/uL N Granulocyte % 68.7 % N 38-83 Lymphocyte % 17.1 % Low 25-47 Monocyte % 11.6 % High 1-9 Eosinophil % 1.7 % N 0-6 Basophil % 0.9 % N 0-2 Nucleated Red Blood Cells % 0.1 N Laboratory test 11/22/2015 [facility] Erythrocyte Sed 26 mm/Hr N 0-40 [address] [place] [address] [phone] C Reactive Protein 11.78 mg/L High < 5.00 22 Urinalysis Profile 10/12/2015 [facility] Urine Color Yellow N [address] [place] [address] [phone] Urine Appearance Clear N Urine Specific Farber 1.005 Low 1.010-1.030 Urine pH 7.0 N 5-9 Urine Urobilinogen Negative N Negative Urine Ketones Negative N Negative Urine Protein Negative N Negative Urine Leukocytes 1+ Abnormal Negative Urine Blood Negative N Negative Urine Nitrite Negative N Negative Urine Bilirubin Negative N Negative Urine Glucose Negative N Negative Urine White Blood Cell Trace(0-5/hpf) N Absent Urine Red Blood Cell Trace(0-2/hpf) N Absent Urine Bacteria Absent N Absent Urine Squamous Epithelial Cell Present Abnormal Absent Urine Culture And 10/12/2015 [facility] Urine Culture SEE RESULT [address] [place] [address] [phone] Laboratory test 10/12/2015 [facility] Lactic Acid 1.6 mmol/L N 0.5-2 [address]0 [place] [address] [phone] Comp Metabolic 10/12/2015 [facility] Sodium 134 mmol/L N 133- [address] [place] [address] [phone] Potassium 3.9 mmol/L N 3.5-5.0 Chloride 102 mmol/L N 101-111 Co2 Carbon Dioxide 24 mmol/L N 22-32 Anion Gap 8 mmol/L N 2-11 Glucose 102 mg/dL High 70-100 Blood Urea Nitrogen 14 mg/dL N 6-24 Creatinine 0.67 mg/dL N 0.51-0.95 BUN/Creatinine Ratio 20.9 High 8-20 Calcium 9.0 mg/dL N 8.6-10.3 Total Protein 6.9 g/dL N 6.4-8.9 Albumin 3.3 g/dL N 3.2-5.2 Globulin 3.6 g/dL N 2-4 Albumin/Globulin Ratio 0.9 Low 1-3 Total Bilirubin 0.50 mg/dL N 0.2-1.0 Alkaline Phosphatase 70 U/L N 34-104 Alt 13 U/L N 7-52 Ast 16 U/L N 13-39 Egfr Non- 83.9 N >60 Egfr 107.8 N >60 25 Laboratory test 10/12/2015 [facility] Troponin-I 0.02 ng/mL N <0.03 [address] (TnI) [place] [address] [phone] CBC Auto Diff 10/12/2015 [facility] White Blood 9.1 N 3.5- 10.[address] Count 10^3/[place] [address] [phone] Red Blood Count 3.66 10^6/uL Low 4.0-5.4 Hemoglobin 10.1 g/dL Low 12.0-16.0 Hematocrit 31 % Low 35-47 Mean Corpuscular Volume 85 fL N 80-97 Mean Corpuscular Hemoglobin 28 pg N 27-31 Mean Corpuscular HGB Conc 32 g/dL N 31-36 Red Cell Distribution Width 19 % High 10.5-15 Platelet Count 380 10^3/uL N 150-450 Mean Platelet Volume 8 um3 N 7.4-10.4 Abs Neutrophils 6.7 10^3/uL N 1.5-7.7 Abs Lymphocytes 1.0 10^3/uL N 1.0-4.8 Abs Monocytes 1.2 10^3/uL High 0-0.8 Abs Eosinophils 0.2 10^3/uL N 0-0.6 Abs Basophils 0.1 10^3/uL N 0-0.2 Abs Nucleated RBC 0.01 10^3/uL N Granulocyte % 73.6 % N 38-83 Lymphocyte % 10.5 % Low 25-47 Monocyte % 12.8 % High 1-9 Eosinophil % 2.0 % N 0-6 Basophil % 1.1 % N 0-2 Nucleated Red Blood Cells % 0.1 N Inr/Protime 10/12/2015 [facility] Inr 1.97 High 0.89-1.[address] [place] [address] [phone] Laboratory test 10/12/2015 [facility] B-Type 840 High [address] Natriuretic pg/[place] [address] Peptide BNP [phone] Blood Culture SEE RESULT BELOW 28 Laboratory test 09/30/2015 [facility] C Difficile PCR SEE RESULT [address] [place] [address] [phone] Comp Metabolic 09/30/2015 [facility] Sodium 129 mmol/L Low 133 -[address] [place] [address] [phone] Potassium 3.0 mmol/L Low 3.5-5.0 Chloride 99 mmol/L Low 101-111 Co2 Carbon Dioxide 22 mmol/L N 22-32 Anion Gap 8 mmol/L N 2-11 Glucose 136 mg/dL High 70-100 Blood Urea Nitrogen 14 mg/dL N 6-24 Creatinine 0.84 mg/dL N 0.51-0.95 BUN/Creatinine Ratio 16.7 N 8-20 Calcium 8.2 mg/dL Low 8.6-10.3 Total Protein 6.3 g/dL Low 6.4-8.9 Albumin 3.0 g/dL Low 3.2-5.2 Globulin 3.3 g/dL N 2-4 Albumin/Globulin Ratio 0.9 Low 1-3 Total Bilirubin 0.40 mg/dL N 0.2-1.0 Alkaline Phosphatase 48 U/L N 34-104 Alt 8 U/L N 7-52 Ast 11 U/L Low 13-39 Egfr Non- 64.6 N >60 Egfr 83.1 N >60 30 Laboratory test 09/30/2015 [facility] C Reactive 194.33 mg/L High < 5.00 [address] [place] [address] [phone] CBC Auto Diff 09/30/2015 [facility] White Blood 17.8 High 3.5- 10.[address] Count 10^3/uL [place], [place] [id number] [phone] Red Blood Count 3.69 10^6/uL Low 4.0-5.4 Hemoglobin 10.1 g/dL Low 12.0-16.0 Hematocrit 31 % Low 35-47 Mean Corpuscular Volume 83 fL N 80-97 Mean Corpuscular Hemoglobin 27 pg N 27-31 Mean Corpuscular HGB Conc 33 g/dL N 31-36 Red Cell Distribution Width 17 % High 10.5-15 Platelet Count 344 10^3/uL N 150-450 Mean Platelet Volume 8 um3 N 7.4-10.4 Abs Neutrophils 14.7 10^3/uL High 1.5-7.7 Abs Lymphocytes 0.8 10^3/uL Low 1.0-4.8 Abs Monocytes 2.1 10^3/uL High 0-0.8 32 Abs Eosinophils 0.1 10^3/uL N 0-0.6 Abs Basophils 0.1 10^3/uL N 0-0.2 Abs Nucleated RBC 0 10^3/uL N Granulocyte % 82.4 % N 38-83 Lymphocyte % 4.4 % Low 25-47 Monocyte % 11.8 % High 1-9 Eosinophil % 0.6 % N 0-6 Basophil % 0.8 % N 0-2 Nucleated Red Blood Cells % 0 N Laboratory test 09/30/2015 [facility] Lactic Acid 1.8 mmol/L N 0.5-2.0 33 finding [address] [place] [address] [phone] Urinalysis 09/30/2015 [facility] Urine Color Yellow N Profile [address] [place] [address] [phone] Urine Appearance Cloudy N Urine Specific Farber 1.013 N 1.010-1.030 Urine pH 5.0 N 5-9 Urine Urobilinogen Negative N Negative Urine Ketones Negative N Negative Urine Protein Negative N Negative Urine Leukocytes 2+ Abnormal Negative Urine Blood Negative N Negative Urine Nitrite Negative N Negative Urine Bilirubin Negative N Negative Urine Glucose Negative N Negative Urine White Blood Cell 3+(>20/hpf) Abnormal Absent Urine Red Blood Cell Trace(0-2/hpf) N Absent Urine Bacteria 1+ Abnormal Absent Urine Squamous Epithelial Cell Present Abnormal Absent Urine Hyaline Casts Present Abnormal Absent Urine Culture And 09/30/2015 [facility] Urine Culture SEE RESULT [address] [place] [address] [phone] Trudy Igg AB Reflex 09/28/2015 [facility] SS-A/Ro <0.2 U N [address] [place] [address] [phone] SS-B/La Antibody <0.2 U N 36 Sm (Lepe) IgG Antibody <0.2 U N 37 U1-nRNP Antibody <0.2 U N 38 Scl-70 (Scleroderma) Antibody <0.2 U N 39 Nalini-1 Antibody <0.2 U N 40 Laboratory test 09/28/2015 [facility] Anti-Double <12.3 IU/mL N [address] [place] [address] [phone] Anti-Nuclear Ab 0.9 U N 42 Iron & Iron Binding 09/28/2015 [facility] Iron 26 g/dL Low 50-[address] [place] [address] [phone] Unsaturated Iron Binding 181 g/dL N Total Iron Binding Capacity 207 g/dL Low 250-450 % Iron Saturation 13 % Low 15-55 Protein 09/28/2015 [facility] Total 6.4 g/dL N 6.3 - Electrophoresis 101 Protein(Pep) 7.9 [place] [address] [phone] Albumin 2.5 g/dL Abnormal 3.4-4.7 Alpha-1 Globulin 0.4 g/dL Abnormal 0.1-0.3 Alpha-2 Globulin 1.1 g/dL Abnormal 0.6-1.0 Beta Globulin 0.8 g/dL N 0.7-1.2 Gamma Globulin 1.6 g/dL N 0.6-1.6 Albumin/Globulin Ratio 0.66 N Impression See Comment N 43 Laboratory test 09/28/2015 [facility] Vitamin B12 505 pg/mL N 180-914 [address] [place] [address] [phone] Laboratory test 09/28/2015 [facility] Lyme Disease Negative N Negative [address] [place] [address] [phone] Angiotensin Converting Enzyme 46 U/L N 8 - 53 46 Rheumatoid Factor <15 IU/mL N <15 47 Uric Acid 4.3 mg/dL N 2.3-6.6 48 Cyclic Citrullinated Pep Igg <15.6 U N 49 Laboratory test 09/28/2015 [facility] C Reactive 78.64 mg/L High < 5.00 [address] [place] [address] [phone] Hla B27 09/28/2015 [facility] Hla B27 Negative N [address] [place] [address] [phone] Hla B27 Interp See Comment N 52 Comp Metabolic Panel 09/28/2015 [facility] Sodium 132 mmol/L Low 133-[address] [place] [address] [phone] Potassium 3.8 mmol/L N 3.5-5.0 Chloride 99 mmol/L Low 101-111 Co2 Carbon Dioxide 26 mmol/L N 22-32 Anion Gap 7 mmol/L N 2-11 Glucose 96 mg/dL N 70-100 Blood Urea Nitrogen 12 mg/dL N 6-24 Creatinine 0.72 mg/dL N 0.51-0.95 BUN/Creatinine Ratio 16.7 N 8-20 Calcium 8.5 mg/dL Low 8.6-10.3 Total Protein 6.1 g/dL Low 6.4-8.9 Albumin 3.1 g/dL Low 3.2-5.2 Globulin 3.0 g/dL N 2-4 Albumin/Globulin Ratio 1.0 N 1-3 Total Bilirubin 0.40 mg/dL N 0.2-1.0 Alkaline Phosphatase 47 U/L N 34-104 Alt 9 U/L N 7-52 Ast 13 U/L N 13-39 Egfr Non- 77.2 N >60 Egfr 99.2 N >60 53 Celiac Panel 09/28/2015 [facility] Tissue Transglutaminase <1.2 U/mL N [address] [place] [address] [phone] Immunoglobulin A 459 mg/dL Abnormal 61 - 356 Celiac Interpretation See Comment N 55 Laboratory test 09/12/2015 [facility] C Difficile PCR SEE RESULT [address] [place] [address] [phone] Surgical 04/04/2013 [facility] S RUN DATE: [address] 04/05/ <SEE MIKAELA Terry [address] NOTE> [phone] 1 Because ethnic data is not always readily available, this report includes an eGFR for both -Americans and non- Americans. The National Kidney Disease Education Program (NKDEP) does not endorse the use of the MDRD equation for patients that are not between the ages of 18 and 70, are , have extremes of body size, muscle mass, or nutritional status, or are non- or non-. According to the National Kidney Foundation, irrespective of diagnosis, the stage of the disease is based on the level of kidney function: Stage Description GFR(mL/min/1.73 m(2)) 1 Kidney damage with normal or decreased GFR 90 2 Kidney damage with mild decrease in GFR 60-89 3 Moderate decrease in GFR 30-59 4 Severe decrease in GFR 15-29 5 Kidney failure <15 (or dialysis) 2 SEE RESULT BELOW Name: ALTONJENNIFER E : [address]: Ck Meraz MD Acct: [id number] Unit: [id number] AGE: 87 Location: [facility] Re04/14/18 SEX: F Status: REG REF SPEC: [id number] JESSICA: 04/14/18-[address] [facility] [address]: Ck Meraz MD REQ: [id number] RECD: 04/14/18 STATUS: COMP _ SOURCE: JOINT FLUI SPDESC: ORDERED: BF Jennifer/GS, MRSA/SA SSTI Procedure Result Reported Site Body Fluid Gram Stain Final 04/14/18- 2356 ML 4+ Nucleated Cells 2+ Neutrophils No Organisms Seen Preparation By Cytospin Smear Body Fluid Culture Final 04/18/18- 0838 ML No Growth Day 4 MRSA/S. aureus SSTI PCR Final 04/15/18- 0242 ML Organism 1 MRSA NEGATIVE Organism 2 S.AUREUS NEGATIVE * ML - Main Lab . END OF REPORT DEPARTMENT OF PATHOLOGY, [address] [place] [address] Td Carrion M.D. Director [facility] # [id number] What is the body fluid source?: Synovial (Joint) Fluid 4 -- REFERENCE VALUE -- Synovial: <150/mcL Peritoneal: <500/mcL Pleural: <500/mcL Pericardial: <500/mcL 5 No evidence of an acute inflammatory response. No evidence of malignancy. Reviewed by Jennifer Talbot MD 6 -- REFERENCE VALUE -- Synovial: <150/mcL Peritoneal: <500/mcL Pleural: <500/mcL Pericardial: <500/mcL 7 Acute inflammation. Recommend correlation with microbiology culture studies. Reviewed by Jennifer Talbot MD 8 [id number] What is the body fluid source?: Synovial (Joint) Fluid 9 SEE RESULT BELOW Name: JENNIFER DANG : [address]: Ck Meraz MD Acct: [id number] Unit: [id number] AGE: 86 Location: [facility] Re11/25/17 SEX: F Status: REG REF SPEC: [id number] JESSICA: 11/25/17-[address] [facility] [address]: Ck Meraz MD REQ: [id number] RECD: 11/25/17 STATUS: COMP _ SOURCE: BODY FLUID SPDESC: ORDERED: BF Cult/GS, MRSA/SA SSTI COMMENTS: [id number] Procedure Result Reported Site Body Fluid Gram Stain Final 11/25/17- 2138 ML 4+ Neutrophils 2+ Nucleated Cells No Organisms Seen Preparation By Cytospin Smear Body Fluid Culture Final 11/29/17- 45 ML No Growth Day 4 MRSA/S. aureus SSTI PCR Final 11/25/17- 2250 ML Organism 1 MRSA NEGATIVE Organism 2 S.AUREUS NEGATIVE * ML - Main Lab . END OF REPORT DEPARTMENT OF PATHOLOGY, [address] [place] [address] Td Carrion M.D. Director [facility] # [id number] 10 Because ethnic data is not always readily available, this report includes an eGFR for both -Americans and non- Americans. The National Kidney Disease Education Program (NKDEP) does not endorse the use of the MDRD equation for patients that are not between the ages of 18 and 70, are , have extremes of body size, muscle mass, or nutritional status, or are non- or non-. According to the National Kidney Foundation, irrespective of diagnosis, the stage of the disease is based on the level of kidney function: Stage Description GFR(mL/min/1.73 m(2)) 1 Kidney damage with normal or decreased GFR 90 2 Kidney damage with mild decrease in GFR 60-89 3 Moderate decrease in GFR 30-59 4 Severe decrease in GFR 15-29 5 Kidney failure <15 (or dialysis) 11 PLease check labs 2 days before follow up 12 Acute inflammation: >10.00 13 Because ethnic data is not always readily available, this report includes an eGFR for both -Americans and non- Americans. The National Kidney Disease Education Program (NKDEP) does not endorse the use of the MDRD equation for patients that are not between the ages of 18 and 70, are , have extremes of body size, muscle mass, or nutritional status, or are non- or non-. According to the National Kidney Foundation, irrespective of diagnosis, the stage of the disease is based on the level of kidney function: Stage Description GFR(mL/min/1.73 m(2)) 1 Kidney damage with normal or decreased GFR 90 2 Kidney damage with mild decrease in GFR 60-89 3 Moderate decrease in GFR 30-59 4 Severe decrease in GFR 15-29 5 Kidney failure <15 (or dialysis) 14 Copy Result to: MADAI SALINAS ([id number]) 15 Normal Range 180 to 914 Indeterminate Range 145 to 180 Deficient Range <145 16 Please check 2 days before the next visit 17 Acute inflammation: >10.00 18 Because ethnic data is not always readily available, this report includes an eGFR for both -Americans and non- Americans. The National Kidney Disease Education Program (NKDEP) does not endorse the use of the MDRD equation for patients that are not between the ages of 18 and 70, are , have extremes of body size, muscle mass, or nutritional status, or are non- or non-. According to the National Kidney Foundation, irrespective of diagnosis, the stage of the disease is based on the level of kidney function: Stage Description GFR(mL/min/1.73 m(2)) 1 Kidney damage with normal or decreased GFR 90 2 Kidney damage with mild decrease in GFR 60-89 3 Moderate decrease in GFR 30-59 4 Severe decrease in GFR 15-29 5 Kidney failure <15 (or dialysis) 19 >100 to <200 pg/mL: likely compensated congestive heart failure (CHF) 200 to 400 pg/mL: likely moderate CHF >400 pg/mL: likely moderate to severe CHF 20 Because ethnic data is not always readily available, this report includes an eGFR for both -Americans and non- Americans. The National Kidney Disease Education Program (NKDEP) does not endorse the use of the MDRD equation for patients that are not between the ages of 18 and 70, are , have extremes of body size, muscle mass, or nutritional status, or are non- or non-. According to the National Kidney Foundation, irrespective of diagnosis, the stage of the disease is based on the level of kidney function: Stage Description GFR(mL/min/1.73 m(2)) 1 Kidney damage with normal or decreased GFR 90 2 Kidney damage with mild decrease in GFR 60-89 3 Moderate decrease in GFR 30-59 4 Severe decrease in GFR 15-29 5 Kidney failure <15 (or dialysis) 21 Please check within 1 week or so 22 Acute inflammation: >10.00 23 SEE RESULT BELOW Name: JENNIFER DANG : [address]: Vikas Das MD Acct: [id number] Unit: [id number] AGE: 84 Location: [place] [address] Re10/12/15 SEX: F Status: ADM Justina SPEC: [id number] JESSICA: 10/12/15-[address] [facility] [address]: Skyler Correia DO REQ: [id number] RECD: 10/12/15 STATUS: CRISTAL BUENROSTRO DR: Madai Meraz MD _ SOURCE: URINE [facility]: ORDERED: Urine Culture Procedure Result Reported Site Urine Culture Final 10/13/15- 1226 ML No Growth (<1,000 CFU/mL) * ML - MAIN LAB ([facility]) . END OF REPORT * ML=Testing performed at Main Lab DEPARTMENT OF PATHOLOGY, [address] [place] [address] Td Carrion M.D. Director [facility] # [id number] [facility] Severe Sepsis and Septic Shock Management Bundle Measure requires all lactic acids initially measuring >2.0 mmol/L be repeated. 25 Because ethnic data is not always readily available, this report includes an eGFR for both -Americans and non- Americans. The National Kidney Disease Education Program (NKDEP) does not endorse the use of the MDRD equation for patients that are not between the ages of 18 and 70, are , have extremes of body size, muscle mass, or nutritional status, or are non- or non-. According to the National Kidney Foundation, irrespective of diagnosis, the stage of the disease is based on the level of kidney function: Stage Description GFR(mL/min/1.73 m(2)) 1 Kidney damage with normal or decreased GFR 90 2 Kidney damage with mild decrease in GFR 60-89 3 Moderate decrease in GFR 30-59 4 Severe decrease in GFR 15-29 5 Kidney failure <15 (or dialysis) 26 Reference Range and Interpretation: TnI (ng/mL) Interpretation Less Than 0.03 ng/mL Not supportive of diagnosis of NM 0.03 - 0.50 ng/mL Indeterminate: suggest serial studies if clinically indicated. Greater than 0.5 ng/mL Consistent with diagnosis of NM 27 >100 to <200 pg/mL: likely compensated congestive heart failure (CHF) 200 to 400 pg/mL: likely moderate CHF >400 pg/mL: likely moderate to severe CHF 28 SEE RESULT BELOW Name: JENNIFER DANG : [address]: Vikas Das MD Acct: [id number] Unit: [id number] AGE: 84 Location: [place] [address] Re10/13/15 Dis: 10/14/15 SEX: F Status: DIS IN SPEC: [id number] JESSICA: 10/12/15-[address] [facility] [address]: Skyler Correia DO REQ: [id number] RECD: 10/12/15 STATUS: CRISTAL BUENROSTRO DR: Madai Meraz MD _ SOURCE: BLOOD,VENO SPDESC: ORDERED: Blood Cult COMMENTS: Patient is On Antibiotics? NO Procedure Result Reported Site Aerobic Culture Bottle Final 10/17/151146 ML No Growth Day 5 Anaerobic Culture Bottle Final 10/17/151146 ML No Growth Day 5 * ML - MAIN LAB ([facility]) . END OF REPORT * ML=Testing performed at Main Lab DEPARTMENT OF PATHOLOGY, [address] [place] [address] Td Carrion M.D. Director [facility] # [id number] 29 SEE RESULT BELOW Name: JENNIFER DANG : [address]: Jose Roberto Cuellar MD Acct: [id number] Unit: [id number] AGE: 84 Location: ED Re09/30/15 SEX: F Status: REG ER SPEC: [id number] JESSICA: 09/30/[address]: Jose Roberto Cuellar MD REQ: [id number] RECD: 09/30/15 STATUS: CRISTAL BUENROSTRO DR: Madai Meraz MD _ SOURCE: STOOL SPDESC: ORDERED: Eugenio lou PCR Procedure Result Reported Site Stool Specimen Description Final 09/30/15- 1853 ML Stool Color Greenish Brown Stool Form Nonformed Stool Consistency Mucoid C. difficile PCR Final 09/30/15- 1938 ML Organism 1 027 Presumptive NEGATIVE Organism 2 Toxigenic C.diff POSITIVE * ML - MAIN LAB ([facility]) . END OF REPORT * ML=Testing performed at Main Lab DEPARTMENT OF PATHOLOGY, [address] [place] [address] Td Carrion M.D. Director [facility] # [id number] 30 Because ethnic data is not always readily available, this report includes an eGFR for both -Americans and non- Americans. The National Kidney Disease Education Program (NKDEP) does not endorse the use of the MDRD equation for patients that are not between the ages of 18 and 70, are , have extremes of body size, muscle mass, or nutritional status, or are non- or non-. According to the National Kidney Foundation, irrespective of diagnosis, the stage of the disease is based on the level of kidney function: Stage Description GFR(mL/min/1.73 m(2)) 1 Kidney damage with normal or decreased GFR 90 2 Kidney damage with mild decrease in GFR 60-89 3 Moderate decrease in GFR 30-59 4 Severe decrease in GFR 15-29 5 Kidney failure <15 (or dialysis) 31 Acute inflammation: >10.00 32 Consistent with previous results on 09/19/15. 33 [facility] Severe Sepsis and Septic Shock Management Bundle Measure requires all lactic acids initially measuring >2.0 mmol/L be repeated. 34 SEE RESULT BELOW Name: JENNIFER DANG : [address]: Aisha Gregorio MD Acct: [id number] Unit: [id number] AGE: 84 Location: [place] [address] Re09/30/15 SEX: F Status: ADM IN SPEC: [id number] JESSICA: 09/30/[address] [facility] [address]: Jose Roberto Cuellar MD REQ: [id number] RECD: 09/30/15 STATUS: CRISTAL BUENROSTRO DR: Madai Meraz MD _ SOURCE: URINE SPDESC: ORDERED: Urine Culture Procedure Result Reported Site Urine Culture Final 10/03/15- 0816 ML Organism 1 ESCHERICHIA COLI [place] Count 75-100,000 (Many) CFU/ML 1. ESCHERICHIA COLI M.I.C. RX --------- ------ Ampicillin >=32 R Cefazolin <=4 S Cefepime <=1 S Ceftriaxone <=1 S Ciprofloxacin >=4 R Gentamicin >=16 R Levofloxacin >=8 R Meropenem <=0.25 S Nitrofurantoin <=16 S Tetracycline >=16 R Pipercillin/Tazobactam <=4 S Trimethoprim/Sulfamethoxazole >=320 R Amoxicillin/Clavulanic Acid 8 S Aztreonam <=1 S Contact the Microbiology Department for any additional antibiotic reporting. * ML - MAIN LAB ([facility]) . END OF REPORT * ML=Testing performed at Main Lab DEPARTMENT OF PATHOLOGY, [address] [place] [address] Td Carrion M.D. Director THU # [id number] 35 REFERENCE VALUE <1.0 (Negative) 36 REFERENCE VALUE <1.0 (Negative) 37 REFERENCE VALUE <1.0 (Negative) 38 REFERENCE VALUE <1.0 (Negative) 39 REFERENCE VALUE <1.0 (Negative) 40 REFERENCE VALUE <1.0 (Negative) Test Performed by: [place] [address] Financial Foundations Representative: Rafa Brumfield II, M.D., Ph.D. 41 REFERENCE VALUE <30.0 (Negative) Test Performed by: [place] [address] [employer] Foundations Representative: Rafa Brumfield II, M.D., Ph.D. 42 REFERENCE VALUE <=1.0 (Negative) Test Performed by: [place] [address] [employer] Foundations Representative: Rafa Brumfield II, M.D., Ph.D. 43 RESULT: No apparent monoclonal protein on serum electrophoresis. Test Performed by: [place] [address] Financial Foundations Representative: Rafa Brumfield II, M.D., Ph.D. 44 Normal Range 180 to 914 Indeterminate Range 145 to 180 Deficient Range <145 45 Serologic response to B. burgdorferi infection is not detected, but cannot rule out early infection during which low or undetectable antibody levels to B. burgdorferi may be present. If clinically indicated, a new serum specimen should be submitted in 7-14 days. Test Performed by: [place] [address] Financial Foundations Representative: Rafa Brumfield II, M.D., Ph.D. 46 Test Performed by: [place] [address] Financial Foundations Representative: Rafa Brumfield II, M.D., Ph.D. 47 Test Performed by: [place] [address] [employer] Foundations Representative: Rafa Brumfield II, M.D., Ph.D. 48 this week please 49 REFERENCE VALUE <20.0 (Negative) Test Performed by: [place] [address] Financial Foundations Representative: Rafa Brumfield II, M.D., Ph.D. 50 Acute inflammation: >10.00 51 REFERENCE VALUE Not Applicable 52 RESULT: HLA-B27 antigen was not detected. ADDITIONAL INFORMATION Method: Flow Cytometry Performing Laboratory CLIA# [id number] Test Performed by: [place] [address] Financial Foundations Representative: Rafa Brumfield II, M.D., Ph.D. 53 Because ethnic data is not always readily available, this report includes an eGFR for both -Americans and non- Americans. The National Kidney Disease Education Program (NKDEP) does not endorse the use of the MDRD equation for patients that are not between the ages of 18 and 70, are , have extremes of body size, muscle mass, or nutritional status, or are non- or non-. According to the National Kidney Foundation, irrespective of diagnosis, the stage of the disease is based on the level of kidney function: Stage Description GFR(mL/min/1.73 m(2)) 1 Kidney damage with normal or decreased GFR 90 2 Kidney damage with mild decrease in GFR 60-89 3 Moderate decrease in GFR 30-59 4 Severe decrease in GFR 15-29 5 Kidney failure <15 (or dialysis) 54 REFERENCE VALUE <4.0 (Negative) Test Performed by: [place] [address] Financial Foundations Representative: Rafa Brumfield II, M.D., Ph.D. 55 Negative serology. Celiac disease unlikely. However, approximately 10% of patients with celiac disease are seronegative. Also, patients who are already adhering to a gluten-free diet may be seronegative. If celiac disease is highly clinically suspected, consider HLA-DQ typing. Test Performed by: [place] [address] Financial Foundations Representative: Rafa Brumfield II, M.D., Ph.D. 56 SEE RESULT BELOW Name: JENNIFER DANG : [address]: Jarod Dumont MD Acct: [id number] Unit: [id number] AGE: 84 [facility] Re09/12/15 SEX: F Status: REG REF SPEC: [id number] JESSICA: 09/12/[address] [facility] [address]: Jarod Dumont MD REQ: [id number] RECD: 09/12/15 STATUS: CRISTAL BUENROSTRO DR: Madai Salinas MD _ SOURCE: STOOL SPDESC: ORDERED: C. diff PCR, Fecal Lactoferr COMMENTS: Verbal to Dr Meraz by [email or web address] at 1902 on 09/12/15. Results read back accurately. Procedure Result Reported Site Stool Specimen Description Final 09/13/15- 0823 ML Stool Color Brown Stool Form Nonformed Stool Consistency Soft C. difficile PCR Final 09/12/15- 1856 ML Organism 1 027 Presumptive NEGATIVE Organism 2 Toxigenic C.diff POSITIVE Fecal Lactoferrin (Stool WBC) Final 09/13/15- 0852 ML Fecal Lactoferrin Positive by Immunoassay TEST LIMITATIONS: Assay detects elevated levels of lactoferrin released from fecal leukocytes as a marker of intestinal inflammation. The test may not be appropriate in immunocompromised persons. Fecal samples from breast fed infants should not be used with this assay. * ML - MAIN LAB ([facility]) . END OF REPORT * ML=Testing performed at Main Lab DEPARTMENT OF PATHOLOGY, [facility] [place], [place] [address] Td Carrion M.D. Director [facility] # [id number] RUN DATE: 04/05/13 [facility] LAB LIVE PAGE 1 RUN TIME: 1511 [facility] [address] [place], [place] [address] Specimen Inquiry Name: JENNIFER DANG : [address]: Sebastian Gallardo MD Acct: [id number] Unit: [id number] AGE: 82 Location: [facility] Re04/04/13 SEX: F Status: REG REF SPEC: [id number] JESSICA: 04/04/13- SUBM DR: Sebastian Gallardo MD REQ: [id number] RECD: 04/04/13 STATUS: SOUT _ ORDERED: LEVEL I FINAL DIAGNOSIS Event monitor: Foreign body (event monitor) (Gross diagnosis). CLINICAL HISTORY No history given. GROSS DESCRIPTION The specimen is received fresh labeled Jennifer Dang, Event Monitor, and consists of an event monitor battery, metallic and plastic, measuring 6.2 x 1.8 cm. by up to 0.7 cm. inscribed No.1 [employer] Reveal XT, Model 9529, serial number [id number]. Per established hospital medical staff protocol no tissue is submitted. Gross only. Signed (signature on file) Td Carrion MD 1512 END OF REPORT * ML=Testing performed at Main Lab DEPARTMENT OF PATHOLOGY, [address] [place] [address] Td Carrion M.D. Director [facility] Permit #[id number] Procedures Date Code Description Status 12/29/201894094 Inject/Drain Joint/Bursa Major W/O US Completed 11/16/2018 67040 Removal Devitalization Tissue Wound Less Than Equal 20 Completed Square CM 11/09/2018 95432 Removal Devitalization Tissue Wound Less Than Equal 20 Completed Square CM 11/02/2018 71303 Removal Devitalization Tissue Wound Less Than Equal 20 Completed Square CM 10/26/2018 14540 Removal Devitalization Tissue Wound Less Than Equal 20 Completed Square CM 09/01/201846280 Inject/Drain Joint/Bursa Major W/O US Completed 07/07/2018 37992 EKG Tracing & Interpretation Completed 06/14/201831790 Inject/Drain Joint/Bursa Major W/O US Completed 05/03/201892567 Inject/Drain Joint/Bursa Major W/O US Completed 11/25/2017 Inject/Drain Joint/Bursa Major W/O US Completed 11/25/201771525 Inject/Drain Joint/Bursa Major W/O US Completed 07/13/201775213 Inject/Drain Joint/Bursa Major W/O US Completed 06/24/2017 06340 EKG Tracing & Interpretation Completed 12/24/2016 94789 EKG Tracing & Interpretation Completed 12/19/2016 110888042 Diabetic Retinal Eye Exam Completed 04/16/2016 31769 Polysomnography Sleep Staging 4+ Parameters Completed 12/12/2015 965809429 Diabetic Retinal Eye Exam Completed 12/05/2015 68611 ECHO Transthoracic, Real-Time 2D With Doppler And Completed Color Flow 11/28/2015 84632 EKG Tracing & Interpretation Completed 11/08/2015 28204 Holter Monitor Review (24 hr)dr review & interp only Completed 11/06/2015 72852 ECG Monitor/Recording W/Visual Superimposition Completed Scanning 10/31/2015 80763 EKG Tracing & Interpretation Completed 10/13/2015 06771 EKG, Interpretation Only Completed 10/12/2015 83690 ECHO Transthorasic Realtime 2D W Doppler & Color Flow Completed Hosp 09/15/2015 86321 EKG, Interpretation Only Completed 03/21/2015 88125 Inject/Drain Joint/Bursa Major W/O US Completed 10/03/2014 49231 Inject Tendon Sheath Or Ligament Aponeurosis Eg Completed Plantar Fascia 03/22/2014 17102 EKG Tracing & Interpretation Completed 02/15/2014 38013 Rad Shoulder Comp, Min. 2 Views Completed 02/15/2014 53585 Rad Shoulder Comp, Min. 2 Views Completed 05/02/2013 24544 Interrogation Device Eval,Implantable Loop Recorder Completed System 04/04/2013 22408 Removal Loop Recorder Completed 03/16/2013 23634 Interrogation Device Eval,Implantable Loop Recorder Completed System 01/31/2013 61914 Interrogation Device Eval,Implantable Loop Recorder Completed System 12/30/2012 55933 Interrogation Device Eval,Implantable Loop Recorder Completed System 11/29/2012 25913 Implant Cardiac Loop Recorder Completed 09/23/2012 30708 EKG Tracing & Interpretation Completed 08/18/2012 86375 Xray Knee 3 Views Completed 08/18/2012 06914 Rad Exam; Knee, Ap&L Completed 10/09/2011 32985 Rad Exam; Wrist, Comp, Min 3 Views Completed 07/14/2011 49649 Arthroscopy,Knee,Meniscectomy Medial Or Lateral Completed 07/14/2011 30324 Arthroscopy,Knee,Meniscectomy Medial Or Lateral Completed 05/13/2011 34404 Inject/Drain Joint/Bursa Major W/O US Completed 11/15/2010 36376 Rad Exam; Hip Unilat Completed 11/15/2010 87280 Rad Exam; Hip Unilat Completed 11/15/2010 86950 Rad Exam; Pelvis Completed 08/29/2010 45871 Rad Exam; Wrist, Comp, Min 3 Views Completed 08/16/2010 68694 CLST TRMT Distal Radial FX Completed 05/21/2010 03816 Rad Exam; Hip Unilat Completed 05/21/2010 82161 Rad Exam; Hip Unilat Completed 05/21/2010 93609 Rad Exam; Pelvis Completed Encounters Type Date Location Provider Dx Diagnosis Office Visit 11/30/2018 Wound Care Gilles Bright S81.802D Unspecified [place] 9:45[place] [facility] [place] Mckeon wound, left lower leg, subsequent encounter W54.8xxD Other contact with dog, subsequent encounter S81.801D Unspecified open wound, right lower leg, subs encntr I10 Essential (primary) hypertension Office Visit 11/23/2018 9:30a Wound Care Gilles Bright S81.802D Unspecified open [place] [facility] [place] Mckeon wound, left lower leg, subsequent encounter S81.801D Unspecified open wound, right lower leg, subs encntr W54.8xxD Other contact with dog, subsequent encounter I10 Essential (primary) hypertension Office Visit 10/26/2018 10:30a Wound Care Gilles Bright S81.802A Unspecified open [place] [facility] [place] Mckeon wound, left lower leg, initial encounter W54.8xxA Other contact with dog, initial encounter I10 Essential (primary) hypertension Z79.01 senior care (current) use of anticoagulants Office Visit 09/15/2018 Rheumatology Ck 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 fibrillation I10 Essential (primary) hypertension Office Visit 07/05/2018 10:30a Orthopedic Services Reema Gilmore, M25.561 Pain in right Of C.M.A. M.D. knee M25.461 Effusion, right knee M17.11 Unilateral primary osteoarthritis, right knee M21.061 Valgus deformity, not elsewhere classified, right knee Office Visit 06/14/2018 10:00a Orthopedic Services Reemaantonio Gilmore, M25.561 Pain in right Of C.M.A. M.D. knee M25.461 Effusion, right knee M17.11 Unilateral primary osteoarthritis, right knee M21.061 Valgus deformity, not elsewhere classified, right knee Office Visit 05/24/2018 Orthopedic Reema M17.11 Unilateral primary 8:00a Services Of Susan Gilmore osteoarthritis, right C.M.A. knee M25.561 Pain in right knee M21.061 Valgus deformity, not elsewhere classified, right knee M25.461 Effusion, right knee M17.11 Unilateral primary osteoarthritis, right knee M21.061 Valgus deformity, not elsewhere classified, right knee Office Visit 05/18/2018 Rheumatology Ck M17.11 Unilateral primary 9:00a Services Of Maria De Jesus Meraz M.D. osteoarthritis, right knee M06.4 Inflammatory polyarthropathy M85.89 Ot disrd of bone density and structure, multiple sites Office Visit 04/14/2018 1:00p Rheumatology Ck M25.461 Effusion, right Services Of Maria De Jesus Meraz M.D. knee M06.4 Inflammatory polyarthropathy Z79.899 Other intermediate school teacher (current) drug therapy A69.20 Lyme disease, unspecified D72.829 Elevated white blood cell count, unspecified Office Visit 12/30/2017 11:30a [facility] Sebastian Ha I48.2 Chronic atrial Of Maria De Jesus Gallardo M.D. fibrillation I42.9 Cardiomyopathy, unspecified Office Visit 12/28/2017 1:30p [facility] Nurse Visit [facility] Office Visit 12/02/2017 3:15p [facility] Sebastian Ha I48.2 Chronic atrial Of Maria De Jesus Gallardo M.D. fibrillation I42.9 Cardiomyopathy, unspecified Office Visit 11/25/2017 Rheumatology Ck M17.11 Unilateral primary 10:00a Services Of Maria De Jesus Meraz M.D. osteoarthritis, right knee M06.4 Inflammatory polyarthropathy D72.829 Elevated white blood cell count, unspecified Z79.899 Other usp (current) drug therapy M25.461 Effusion, right knee M25.561 Pain in right knee Office Visit 10/12/2017 Rheumatology Ck M06.4 Inflammatory 2:20p Services Of Maria De Jesus Meraz M.D. polyarthropathy D72.829 Elevated white blood cell count, unspecified M17.11 Unilateral primary osteoarthritis, right knee Z79.899 Other intermediate school teacher (current) drug therapy Office Visit 09/30/2017 11:15a [facility] Sebastian Ha I50.9 Heart failure, Of Maria De Jesus Gallardo M.D. unspecified I48.2 Chronic atrial fibrillation I42.9 Cardiomyopathy, unspecified Office Visit 07/13/2017 Rheumatology Ck M17.11 Unilateral primary 10:00a Services Of Maria De Jesus Meraz M.D. 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 polyarthropathy Z79.899 Other intermediate school teacher (current) drug therapy D72.829 Elevated white blood cell count, unspecified M17.11 Unilateral primary osteoarthritis, right knee Office Visit 01/08/2017 [facility] Nurse Visit I42.9 Cardiomyopathy, 10:00a Cardiology Of IC unspecified Consulting Utility Forester Office Visit 12/24/2016 [facility] Sebastian Ha I42.9 Cardiomyopathy, 9:15a Cardiology Of Susan Gallardo unspecified Consulting Utility Forester I48.2 Chronic atrial fibrillation I50.9 Heart failure, unspecified Office Visit 08/25/2016 Rheumatology Ck M06.4 Inflammatory 9:00a Services Of Maria De Jesus Meraz M.D. polyarthropathy Z79.899 Other intermediate school teacher (current) drug therapy Office Visit 06/11/2016 Harrison Ha I42.9 Cardiomyopathy, 9:00a Cardiology Of Susan Gallardo unspecified [facility] I48.2 Chronic atrial fibrillation Office Visit 05/07/2016 1:30p Pulmonology And [place], R40.0 Somnolence Sleep Services Of DIONI, RN, [facility] G47.61 Periodic limb movement disorder R06.83 Snoring Office Visit 04/11/2016 Rheumatology Ck M06.4 Inflammatory 10:20a Services Of Maria De Jesus Meraz M.D. polyarthropathy D72.829 Elevated white blood cell count, unspecified Z79.899 Other intermediate school teacher (current) drug therapy Office Visit 04/04/2016 10:15a Pulmonology And Sleep Azra Carrero, R06.83 Snoring Services Of [facility] G47.9 Sleep disorder, unspecified Office Visit 01/07/2016 Rheumatology Ck M06.4 Inflammatory 11:00a Services Of Maria De Jesus Meraz M.D. polyarthropathy D72.829 Elevated white blood cell count, unspecified Z79.899 Other intermediate school teacher (current) drug therapy Office Visit 12/04/2015 [facility] Jarod Ha A04.7 Enterocolitis due 11:30a For Ryne Dumont M.D. to Clostridium Diseases difficile Office Visit 11/28/2015 [facility] Alden Courtney I42.9 Cardiomyopathy, 9:30a Cardiology Of DO MARCO ANTONIO Segovia unspecified [facility] I48.0 Paroxysmal atrial fibrillation R06.02 Shortness of breath Office Visit 11/12/2015 Rheumatology Ck Alfredo6.4 Inflammatory 11:00a Services Of Maria De Jesus Meraz M.D. polyarthropathy A04.7 Enterocolitis due to Clostridium difficile D72.829 Elevated white blood cell count, unspecified Z79.899 Other intermediate school teacher (current) drug therapy Office Visit 10/31/2015 1:45p [facility] Sebastian Ha I48.2 Chronic atrial Of [facility] [place] [facility] [place] Susan Gallardo fibrillation I42.9 Cardiomyopathy, unspecified R06.02 Shortness of breath Office Visit 10/19/2015 Rheumatology Ck M06.4 Inflammatory 10:00a Services Of Maria De Jesus Meraz M.D. polyarthropathy M25.572 Pain in left ankle and joints of left foot M25.532 Pain in left wrist Office Visit 10/14/2015 2:54p [facility] Vikas I50.9 Heart failure, Assoc,anne Das M.D. unspecified Hospitalists E78.5 Hyperlipidemia, unspecified I48.91 Unspecified atrial fibrillation E03.9 Hypothyroidism, unspecified Office Visit 10/13/2015 2:54p [facility] Vikas I50.9 Heart failure, Assoc,anne Das M.D. unspecified Hospitalists I48.91 Unspecified atrial fibrillation E78.5 Hyperlipidemia, unspecified E03.9 Hypothyroidism, unspecified Office Visit 10/12/2015 [facility] Delano I50.9 Heart failure, 2:53p Assoc,anne Abel, N.PJulianna unspecified Hospitalists I48.91 Unspecified atrial fibrillation E78.5 Hyperlipidemia, unspecified E03.9 Hypothyroidism, unspecified Office Visit 10/10/2015 [facility] Jarod Ha A04.7 Enterocolitis due 1:20p For Infectious Susan Dumont to Clostridium Diseases difficile I80.8 Phlebitis and thrombophlebitis of other sites Office Visit 10/06/2015 [facility] A04.7 Enterocolitis due 9:28a Assocanne M.D. to Clostridium Hospitalists difficile I80.8 Phlebitis and thrombophlebitis of other sites E87.6 Hypokalemia I48.2 Chronic atrial fibrillation Office 10/05/2015 [facility] Booker I80.8 Phlebitis and Visit 9:27a Assanne guzman II, M.D. thrombophlebitis of Hospitalists other sites A04.7 Enterocolitis due to Clostridium difficile E87.6 Hypokalemia I48.2 Chronic atrial fibrillation Office Visit 10/04/2015 [facility] Aisha A04.7 Enterocolitis due 9:53a Assocanne M.D. to Clostridium Hospitalists difficile I48.91 Unspecified atrial fibrillation J45.909 Unspecified asthma, uncomplicated Office Visit 10/03/2015 [facility] Aisha A04.7 Enterocolitis due 9:52a Assanne guzman M.D. to Clostridium Hospitalists difficile I48.91 Unspecified atrial fibrillation J45.909 Unspecified asthma, uncomplicated Office Visit 10/03/2015 [facility] Mray Ha A04.7 Enterocolitis due 11:02a Ryne Dumont M.D. to Clostridium Diseases difficile Office Visit 10/02/2015 [facility] Mary Ha A04.7 Enterocolitis due 10:42a Ryne Dumont M.D. to Clostridium Diseases difficile Office Visit 10/02/2015 [facility] Aisha Robison A04.7 Enterocolitis due 9:52a anne Atkins M.D. to Clostridium Hospitalists difficile I48.91 Unspecified atrial fibrillation Office Visit 10/01/2015 [facility] Aisha A04.7 Enterocolitis due 9:51a Assanne guzman M.D. to Clostridium Hospitalists difficile I48.91 Unspecified atrial fibrillation Office Visit 10/01/2015 [facility] Jarod Ha A04.7 Enterocolitis due 9:21a For Ryne Dumont M.D. to Clostridium Diseases difficile D72.829 Elevated white blood cell count, unspecified Office Visit 09/30/2015 [facility] Delano A04.7 Enterocolitis due 9:50a Assanne guzman, N.PJulianna to Clostridium Hospitalists difficile I48.91 Unspecified atrial fibrillation J45.909 Unspecified asthma, uncomplicated Office Visit 09/28/2015 Rheumatology Ck M65.872 Other synovitis and 10:00a Services Of Maria De Jesus Meraz M.D. 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 ankle and Diseases joints of left foot R19.7 Diarrhea, unspecified M79.644 Pain in right finger(s) Office Visit 09/04/2015 [facility] Mary Ha M25.572 Pain in left 10:50a Infectious Susan Dumont ankle and joints Diseases of left foot Office Visit 08/31/2015 [facility] Chyna Garcia K57.32 Dvtrcli of lg 1:00p Assoc,pc D.O. int w/o Hospitalists perforation or abscess w/o bleeding E78.0 Pure hypercholesterolemia E03.9 Hypothyroidism, unspecified Office Visit 08/30/2015 12:59p [facility] Chyna K57.32 Dvtrcli of lg int Assoc,pc Jose, D.O. w/o perforation Hospitalists or abscess w/o bleeding E78.0 Pure hypercholesterolemia E03.9 Hypothyroidism, unspecified Office Visit 08/29/2015 12:59p [facility] Chyna K57.32 Dvtrcli of lg int Assoc,pc Jose, D.O. w/o perforation Hospitalists or abscess w/o bleeding E78.0 Pure hypercholesterolemia E03.9 Hypothyroidism, unspecified Office Visit 08/28/2015 [facility] Rakan Booker K57.32 Dvtrcli of lg 12:55p Assoc,anne SAMANIEGO M.D. int w/o Hospitalists perforation or abscess w/o bleeding E78.0 Pure hypercholesterolemia E03.9 Hypothyroidism, unspecified Office Visit 03/21/2015 Orthopedic Lashawn M17.11 Unilateral primary 8:15a Services Of NIMO Reyna osteoarthritis, C.M.A. right knee Office Visit 10/31/2014 Orthopedic Jovany 726.12 Tenosynovitis 2:45p Services Of Susan Livingston Bicipital C.M.A. 728.89 Muscle Disorders Other Office Visit 10/03/2014 9:00a Orthopedic Jovany Livingston 726.61 Bursitis Services Of Susan Tendinitis Pes C.M.A. Anserinus 726.12 Tenosynovitis Bicipital 715.11 Osteoarthrosis Localized Prim Shoulder Region 728.89 Muscle Disorders Other Office Visit 03/22/2014 11:30a [facility] Sebastian Ha 427.31 Atrial Of Maria De Jesus Gallardo M.D. Fibrillation Office Visit 02/15/2014 9:00a Windy Manzo 840.4 [facility] Rotator Cuff [facility] (Capsule) Office Visit 03/23/2013 3:30p [facility] Sebastian Ha 427.31 Atrial Of Maria De Jesus Gallardo M.D. Fibrillation Office Visit 10/28/2012 1:45p Windy Manzo 719.46 Pain Joint Lower [facility] Leg [facility] Office Visit 10/15/2012 1:30p [facility] Sebastian Ha 427.31 Atrial Of Maria De Jesus Gallardo M.D. Fibrillation Office Visit 09/23/2012 1:00p [facility] Sebastian Ha 427.31 Atrial Of Maria De Jesus Gallardo M.D. Fibrillation Office Visit 08/18/2012 8:15a Windy Manzo 726.61 Bursitis [facility] Tendinitis Pes [facility] Anserinus 715.96 Osteoarthrosis Unspec Genlzd Or Localized Lower Leg Office Visit 10/09/2011 Windy Manzo 715.94 Osteoarthrosis 11:15a [facility] Unspec Genlzd Or [facility] Localized Hand Office Visit 06/19/2011 Orthopedic Jovany 836.1 Dislocation Knee 9:45a [facility] Tear Of Lateral [facility] Cartilage Or Meniscus Curre Office Visit 06/12/2011 Orthopedic Jovany 836.1 Dislocation Knee 9:45a [facility] Tear Of Lateral [facility] Cartilage Or Meniscus Curre Office Visit 05/13/2011 Orthopedic Jovany 836.0 Dislocation Knee 10:00a [facility] Tear Of Medial [facility] Cartilage Or Meniscus Curren Office Visit 05/07/2011 Orthopedic Jovany 836.0 Dislocation Knee 8:45a [facility] Tear Of Medial [facility] Cartilage Or Meniscus Curren Office Visit 02/05/2011 Orthopedic Jovany 726.61 Bursitis Tendinitis 10:00a [facility] Pes Anserinus [facility] Office Visit 11/15/2010 Orthopedic Mik Humphreys 726.5 Enthesopathy Of Hip 1:45p [facility] C.M.AJulianna 719.45 Pain Joint Pelvic Region & Thigh Office Visit 07/12/2010 9:15a [facility] Jovany 726.5 Enthesopathy Of [facility] Hip Region [facility] Office Visit 05/21/2010 2:30p [facility] Jovany Miguel6.5 Enthesopathy Of [facility] Hip Region [facility] Plan of Treatment Future Appointment(s):04/01/2019 9:15 am - Reema Gilmore M.D. at [facility]03/17/2019 1:00 pm - Ck Meraz M.D. at [facility]12/29/2018 - Reema Gilmore M.D.M25.561 Pain in right kneeFollow up:Follow up: 3 janbauV43.461 Effusion, right kneeM17.11 Unilateral primary osteoarthritis, right knee
--- OUTSIDE RECORDS SUMMARY | 2019-01-14 07:55 | XMS REPORT | Continuity of Care Document ---
:1930 External Reference #:[id number] Author Name Indu Sy Care Team Providers Name Role Phone Madai Salinas MD Primary Care Physician Unavailable Payers Date Identification Numbers Payment Provider Subscriber Policy Number: [id number] Medicare Jennifer Dang PayID: [id number] [address] [place] [address] Effective: 1995 Policy Number: [id number] Medicare Jennifer Dang Expires: 2018 PayID: [id number] [address] [place] [address] Policy Number: [id number] Lifetime Benefit Solution Jennifer Dang Group Number: [id number] [address] PayID: BEN Gutiérrez [id number] Problems Active Problems Provider Date Atrial fibrillation Sebastian Gallardo M.D. Onset: 03/23/2013 Postoperative Wound Closure Sebastian Gallardo M.D. Onset: 04/13/2013 Encounter Clostridium difficile infection Vikas Smiley M.D. Onset: 09/21/2015 Disturbance in sleep behavior Azra Carrero MD Onset: 04/04/2016 Periodic leg movements of sleep Arminda Hill DNP, RN, Onset: 05/07/2016 PAPER BALER-BC Localized, primary osteoarthritis Reema Gilmore M.D. Onset: 05/24/2018 Family History Date Family Member(s) Observation Comments General No Current Problems Father due to Father had arthritis and brother had () arthritis Mother Non contributory at age 75 Social History Type Date Description Comments Sex Unknown Marital Status Lives With Alone Occupation Retired Tobacco Use Start: Unknown End: Former Cigarette Smoker Unknown Smoking Status Reviewed: 12/22/18 Former Cigarette Smoker ETOH Use Currently consumes [...] M17.11 Ck Meraz, 05/18/2018 Stays/Medium lateral knee M.D. [facility] support to help knee oa icd9 code 715.96 (right, with lateral cas support) Spironolactone 1 by mouth 90tabs I42.9 Sebastian DJulianna 12/24/2016 25mg Tablets every day Susan Gallardo Plaquenil take one 90tabs M06.4 Ck Meraz, 10/19/2015 200mg Tablets capsule/tablet M.DJulianna daily by mouth Xarelto take 1 tablet Unknown 15mg Tablets by mouth once daily Qvar Redihaler 2 puff twice a Unknown 40mcg/Act day Aerosol Losartan Potassium 1 by mouth 90tabs Sebastian D. 50mg every day Brand, M.D. Tablets Qnasl as needed Unknown 80mcg/Act Aerosol [...] Succinate ER take 1 tablet 90tabs Sebastian D. 25mg by mouth every Brand, M.DJulianna Tablets ER 24HR day Montelukast Sodium 1 [...] in the past Metronidazole one tablet by 30tabs Jarod Ha 09/13/2015 - 500mg mouth 3 times Susan Dumont 09/24/2015 Tablets daily for 10 days Xarelto 1 po qd 30tabs Sebastian Ha 03/29/2013 - 20mg Tablets Susan Gallardo 06/08/2014 Cephalexin one by mouth two Unknown - 500mg times daily 09/10/2015 Tablets Xarelto 1 by mouth every Unknown - [...] Unknown - 07/06/2018 Lipitor Unknown - 07/06/2018 Flagyl 1 by mouth three Unknown - [...] Aerosol as needed 07/13/2017 Dymista Instill 1 [place] In Unknown - 137-50mcg/Act Nostril 2 Times A 02/14/2014 Suspension Day Pataday instill one drop 2.500ml Unknown [...] CPT Code Status Date Vaccine Lot # [id number] Given 03/12/2015 Influenza Virus Vaccine, Quadrivalent, Split, Preservative Free Vital Signs Date Vital Result Comment 12/22/2018 8:56am Height 63 inches 5'3" Weight [...] Result H/L Range Note Laboratory test 05/04/2018 [facility] C Reactive 4.04 mg/L N < 8.[address] [place] [address] [phone] Erythrocyte Sed Rate 10 mm/Hr N 0-40 CBC Auto Diff 05/04/2018 [facility] White Blood 8.4 10^3/uL N 3.5-10.[address] [place] [address] [phone] Red Blood Count 4.05 10^6/uL N 4.00-5.40 [...] Cells % 0.1 Comp Metabolic Panel 05/04/2018 [facility] Sodium 138 mmol/L N 135-[address] [place] [address] [phone] Potassium 4.6 mmol/L N 3.5-5.0 Chloride 103 [...] Egfr 50.4 >60 1 Laboratory test 04/14/2018 [facility] Body Fluid SEE RESULT [address] [place] [address] [phone] Body Fluid Crystals None Seen None Seen 3 Body Fluid Cell 04/14/2018 [facility] Body Fluid Synovial Fluid Count [address] [place] [address] [phone] Body Fluid WBC 1531 /mcL N 4 Body Fluid RBC 6574 /mcL Body Fluid Appearance Cloudy Body Fluid Color Yellow Body Fluid Volume 9 mL Body Fluid Neutrophils 8 % Body Fluid Lymph 89 % Body Fluid Hernando 3 % Body Fluid Total Cells Counted 100 Fluid Reviewed By MD (SEE NOTE) 5 Body Fluid Cell 11/25/2017 [facility] Body Fluid Synovial Fluid Count [address] [place] [address] [phone] Body Fluid Appearance Cloudy Body Fluid Color Yellow Body Fluid Volume 7 mL Body Fluid WBC 531 /mcL N 6 Body Fluid RBC 211 /mcL Body Fluid Neutrophils 80 % Body Fluid Lymph 1 % Body Fluid Hernando 19 % Body Fluid Total Cells Counted 100 Fluid Reviewed By MD (SEE NOTE) 7 Laboratory test 11/25/2017 [facility] Body Fluid None Seen None Seen [address] [place] [address] [phone] Body Fluid C&S 11/25/2017 [facility] Body Fluid SEE RESULT [address] [place] [address] Stain [phone] Comp Metabolic 11/23/2017 [facility] Sodium 138 mmol/L N 135- [address] [place], [place] [phone] Potassium 4.3 mmol/L N 3.5-5.0 Chloride 106 [...] Egfr 63.9 >60 10 CBC Auto 11/23/2017 [facility] White Blood 13.5 10^3/uL High 3.5-10.[address] [place] [address] [phone] Red Blood Count 4.00 10^6/uL N 4.00-5.40 [...] Blood Cells % 0.3 Laboratory test 11/23/2017 [facility] Erythrocyte Sed 7 mm/Hr N 0-40 [address] [place] [address] [phone] C Reactive Protein 4.15 mg/L N < 5.00 12 Basic Metabolic Panel 01/02/2017 [facility] Sodium 136 mmol/L N 133-[address] [place] [address] [phone] Potassium 4.2 mmol/L N 3.5-5.0 Chloride 105 mmol/L N 101-111 Co2 Carbon Dioxide 25 mmol/L N 22-32 Anion Gap 6 mmol/L N 2-11 Glucose 105 mg/dL High 70-100 Blood Urea Nitrogen 17 mg/dL N 6-24 Creatinine 1.02 mg/dL High 0.51-0.95 BUN/Creatinine Ratio 16.7 N 8-20 Calcium 8.9 mg/dL N 8.6-10.3 Egfr Non- 51.4 N >60 Egfr 66.1 N >60 13 Laboratory test 04/03/2016 [facility] TSH (Thyroid 2.23 mcIU/mL N 0.34-5.60 [address] Stim Horm) [place] [address] [phone] Vitamin B12 1086 pg/mL High 180-914 15 Laboratory test 04/03/2016 [facility] Erythrocyte Sed 25 mm/Hr N 0-40 [address] [place] [address] [phone] C Reactive Protein 8.48 mg/L High < 5.00 17 CBC Auto Diff 04/03/2016 [facility] White Blood 8.1 10^3/uL N 3.5-10.[address] [place] [address] [phone] Red Blood Count 4.55 10^6/uL N 4.0-5.4 [...] % 0.2 N Comp Metabolic Panel 04/03/2016 [facility] Sodium 138 mmol/L N 133-[address] [place] [address] [phone] Potassium 3.9 mmol/L N 3.5-5.0 Chloride 102 [...] 68.6 N >60 18 Laboratory test 11/28/2015 [facility] B-Type 669 pg/mL High [address] [place] [address] Peptide BNP [phone] Comp Metabolic 11/22/2015 [facility] Sodium 135 mmol/L N 133- [address] [place] [address] [phone] Potassium 4.1 mmol/L N 3.5-5.0 Chloride 103 [...] N >60 20 CBC Auto Diff 11/22/2015 [facility] White Blood 8.5 10^3/uL N 3.5-10.[address] [place] [address] [phone] Red Blood Count 4.28 10^6/uL N 4.0-5.4 [...] Cells % 0.1 N Laboratory test 11/22/2015 [facility] Erythrocyte Sed 26 mm/Hr N 0-40 [address] [place] [address] [phone] C Reactive Protein 11.78 mg/L High < 5.00 22 Urinalysis Profile 10/12/2015 [facility] Urine Color Yellow N [address] [place] [address] [phone] Urine Appearance Clear N Urine Specific [place] 1.005 Low 1.010-1.030 Urine pH 7.0 N [...] Present Abnormal Absent Urine Culture And 10/12/2015 [facility] Urine Culture SEE RESULT [address] [place] [address] [phone] Laboratory test 10/12/2015 [facility] Lactic Acid 1.6 mmol/L N 0.5-2 [address]0 [place] [address] [phone] Comp Metabolic 10/12/2015 [facility] Sodium 134 mmol/L N 133- [address] [place] [address] [phone] Potassium 3.9 mmol/L N 3.5-5.0 Chloride 102 [...] 107.8 N >60 25 Laboratory test 10/12/2015 [facility] Troponin-I 0.02 ng/mL N <0.03 [address] (TnI) [place] [address] [phone] CBC Auto Diff 10/12/2015 [facility] White Blood 9.1 N 3.5- 10.[address] Count 10^3/[place] [address] [phone] Red Blood Count 3.66 10^6/uL Low 4.0-5.4 [...] Blood Cells % 0.1 N Inr/Protime 10/12/2015 [facility] Inr 1.97 High 0.89-1.[address] [place] [address] [phone] Laboratory test 10/12/2015 [facility] B-Type 840 High [address] Natriuretic pg/[place] [address] Peptide BNP [phone] Blood Culture SEE RESULT BELOW 28 Laboratory test 09/30/2015 [facility] C Difficile PCR SEE RESULT [address] [place] [address] [phone] Comp Metabolic 09/30/2015 [facility] Sodium 129 mmol/L Low 133 -[address] [place] [address] [phone] Potassium 3.0 mmol/L Low 3.5-5.0 Chloride 99 [...] 83.1 N >60 30 Laboratory test 09/30/2015 [facility] C Reactive 194.33 mg/L High < 5.00 [address] [place] [address] [phone] CBC Auto Diff 09/30/2015 [facility] White Blood 17.8 High 3.5- 10.[address] Count 10^3/[place] [address] [phone] Red Blood Count 3.69 10^6/uL Low 4.0-5.4 [...] Cells % 0 N Laboratory test 09/30/2015 [facility] Lactic Acid 1.8 mmol/L N 0.5-2.0 [address] [place] [address] [phone] Urinalysis 09/30/2015 [facility] Urine Color Yellow N Profile [address] [place] [address] [phone] Urine Appearance Cloudy N Urine Specific [place] 1.013 N 1.010-1.030 Urine pH 5.0 N [...] Present Abnormal Absent Urine Culture And 09/30/2015 [facility] Urine Culture SEE RESULT [address] [place] [address] [phone] Trudy Igg AB Reflex 09/28/2015 [facility] SS-A/Ro <0.2 U N [address] [place] [address] [phone] SS-B/La Antibody <0.2 U N 36 Sm (Lepe) IgG Antibody <0.2 U N 37 U1-nRNP Antibody <0.2 U N 38 Scl-70 (Scleroderma) Antibody <0.2 U N 39 Nalini-1 Antibody <0.2 U N 40 Laboratory test 09/28/2015 [facility] Anti-Double <12.3 IU/mL N [address] [place] [address] [phone] Anti-Nuclear Ab 0.9 U N 42 Iron & Iron Binding 09/28/2015 [facility] Iron 26 g/dL Low 50-[address] [place] [address] [phone] Unsaturated Iron Binding 181 g/dL N Total Iron Binding Capacity 207 g/dL Low 250-450 % Iron Saturation 13 % Low 15-55 Protein 09/28/2015 [facility] Total 6.4 g/dL N 6.3 - Electrophoresis 101 Protein(Pep) 7.9 [place] [address] [phone] Albumin 2.5 g/dL Abnormal 3.4-4.7 Alpha-1 Globulin 0.4 g/dL Abnormal 0.1-0.3 Alpha-2 Globulin 1.1 g/dL Abnormal 0.6-1.0 Beta Globulin 0.8 g/dL N 0.7-1.2 Gamma Globulin 1.6 g/dL N 0.6-1.6 Albumin/Globulin Ratio 0.66 N Impression See Comment N 43 Laboratory test 09/28/2015 [facility] Vitamin B12 505 pg/mL N 180-[address] [place] [address] [phone] Laboratory test 09/28/2015 [facility] Lyme Disease Negative N Negative [address] [place] [address] [phone] Angiotensin Converting Enzyme 46 U/L N 8 - 53 46 Rheumatoid Factor <15 IU/mL N <15 47 Uric Acid 4.3 mg/dL N 2.3-6.6 48 Cyclic Citrullinated Pep Igg <15.6 U N 49 Laboratory test 09/28/2015 [facility] C Reactive 78.64 mg/L High < 5.[address] [place] [address] [phone] Hla B27 09/28/2015 [facility] Hla B27 Negative N [address] [place] [address] [phone] Hla B27 Interp See Comment N 52 Comp Metabolic Panel 09/28/2015 [facility] Sodium 132 mmol/L Low 133-[address] [place] [address] [phone] Potassium 3.8 mmol/L N 3.5-5.0 Chloride 99 [...] 99.2 N >60 53 Celiac Panel 09/28/2015 [facility] Tissue Transglutaminase <1.2 U/mL N [address] [place] [address] [phone] Immunoglobulin A 459 mg/dL Abnormal 61 - 356 Celiac Interpretation See Comment N 55 Laboratory test 09/12/2015 [facility] C Difficile PCR SEE RESULT [address] [place] [address] [phone] Surgical 04/04/2013 [facility] S RUN DATE: [address] [place] [address] NOTE> [phone] 1 Because ethnic data is not always [...] (or dialysis) 2 SEE RESULT BELOW Name: JENNIFER DANG : [address]: Ck Meraz MD Acct: [id number] Unit: [id number] AGE: 87 Location: [facility] Re04/14/18 SEX: F Status: REG REF SPEC: [id number] JESSICA: 04/14/18-14[address] [facility] [address]: Ck Meraz MD REQ: [id number] RECD: 04/14/18 STATUS: COMP _ SOURCE: JOINT FLUI SPDESC: ORDERED: BF Cult/GS, MRSA/SA SSTI Procedure Result Reported Site Body Fluid Gram Stain Final 04/14/18- 2356 ML 4+ Nucleated Cells 2+ Neutrophils No Organisms Seen Preparation By Cytospin Smear Body Fluid Culture Final 04/18/18- 837 ML No Growth Day 4 MRSA/S. aureus SSTI PCR Final 04/15/18- 0242 ML Organism 1 MRSA NEGATIVE Organism 2 S.AUREUS NEGATIVE * ML - Main Lab . END OF REPORT DEPARTMENT OF PATHOLOGY, [address] [place] [address] Td Carrion M.D. Director [facility] # [id number] What is the body fluid source?: Synovial [...] studies. Reviewed by Jennifer Talbot MD 8 [id number] What is the body fluid source?: Synovial (Joint) Fluid 9 SEE RESULT BELOW Name: JENNIFER DANG : [address]: Ck Meraz MD Acct: [id number] Unit: [id number] AGE: 86 Location: [facility] Re11/25/17 SEX: F Status: REG REF SPEC: [id number] JESSICA: 11/25/17-9 [facility] [address]: Ck Meraz MD REQ: [id number] RECD: 11/25/17 STATUS: COMP _ SOURCE: BODY FLUID SPDESC: ORDERED: BF Cult/GS, MRSA/SA SSTI COMMENTS: [id number] Procedure Result Reported Site Body Fluid Gram Stain Final 11/25/17- 9 ML 4+ Neutrophils 2+ Nucleated Cells No Organisms Seen Preparation By Cytospin Smear Body Fluid Culture Final 11/29/17- 0945 ML No Growth Day 4 MRSA/S. aureus SSTI PCR Final 11/25/17- 2251 ML Organism 1 MRSA NEGATIVE Organism 2 S.AUREUS NEGATIVE * ML - Main Lab . END OF REPORT DEPARTMENT OF PATHOLOGY, [address] [place] [address] Td Carrion M.D. Director [facility] # [id number] 10 Because ethnic data is not always [...] dialysis) 14 Copy Result to: MADAI SALINAS FRANCES ([id number]) 15 Normal Range 180 to 914 Indeterminate [...] [address]: Vikas Das MD Acct: [id number] Unit: [id number] AGE: 84 Location: [place] [address] Re10/12/15 SEX: F Status: ADM Justina SPEC: [id number] JESSICA: 10/12/[address]: Skyler Correia DO REQ: [id number] RECD: 10/12/15 STATUS: CRISTAL BUENROSTRO DR: Madai Meraz MD _ SOURCE: URINE SPDESC: ORDERED: Urine Culture Procedure Result Reported Site Urine Culture Final 10/13/15- 1227 ML No Growth (<1,000 CFU/mL) * ML - MAIN LAB ([facility]) . END OF REPORT * ML=Testing performed at Main Lab DEPARTMENT OF PATHOLOGY, [address] [place] [address] Td Carrion M.D. Director [facility] # [id number] [facility] Severe Sepsis and Septic Shock Management [...] 0.03 ng/mL Not supportive of diagnosis of HI 0.03 - 0.50 ng/mL Indeterminate: suggest serial studies if clinically indicated. Greater than 0.5 ng/mL Consistent with diagnosis of HI 27 >100 to <200 pg/mL: likely compensated congestive heart failure (CHF) 200 to 400 pg/mL: likely moderate CHF >400 pg/mL: likely moderate to severe CHF 28 SEE RESULT BELOW Name: JENNIFER DANG : [address]: Vikas Das MD Acct: [id number] Unit: [id number] AGE: 84 Location: [place] [address] Re10/13/15 Dis: 10/14/15 SEX: F Status: DIS IN SPEC: [id number] JESSICA: 10/12/15-1116 [facility] [address]: Skyler Correia DO REQ: [id number] RECD: 10/12/151147 STATUS: CRISTAL BUENROSTRO DR: Madai Meraz MD _ SOURCE: BLOOD,VENO SPDESC: ORDERED: Blood Cult COMMENTS: Patient is On Antibiotics? NO Procedure Result Reported Site Aerobic Culture Bottle Final 10/17/15- 7 ML No Growth Day 5 Anaerobic Culture Bottle Final 10/17/15- 7 ML No Growth Day 5 * ML - [facility] LAB ([facility]) . END OF REPORT * ML=Testing performed at Main Lab DEPARTMENT OF PATHOLOGY, [address] [place] [address] Td Carrion M.D. Director [facility] # [id number] 29 SEE RESULT BELOW Name: JENNIFER DANG : [address]: Jose Roberto Cuellar MD Acct: [id number] Unit: [id number] AGE: 84 Location: ED Re09/30/15 SEX: F Status: REG ER SPEC: [id number] JESSICA: 09/30/[address]: Jose Roberto Cuellar MD REQ: [id number] RECD: 09/30/15 STATUS: CRISTAL BUENROSTRO DR: Madai Meraz MD _ SOURCE: STOOL SPDESC: ORDERED: C. diff PCR Procedure Result Reported Site Stool Specimen Description Final 09/30/15- 1852 ML Stool Color Greenish Brown Stool Form Nonformed Stool Consistency Mucoid C. difficile PCR Final 09/30/15- 1938 ML Organism 1 027 Presumptive NEGATIVE Organism 2 Toxigenic C.diff POSITIVE * ML - MAIN LAB ([facility]) . END OF REPORT * ML=Testing performed at Main Lab DEPARTMENT OF PATHOLOGY, [address] [place] [address] Td Carrion M.D. Director [facility] # [id number] 30 Because ethnic data is not always [...] Consistent with previous results on 09/19/15. 33 [facility] Severe Sepsis and Septic Shock Management Bundle Measure requires all lactic acids initially measuring >2.0 mmol/L be repeated. 34 SEE RESULT BELOW Name: JENNIFER DANG : [address]: Aisha Gregorio MD Acct: [id number] Unit: [id number] AGE: 84 Location: MED 402-01 Re09/30/15 SEX: F Status: ADM IN SPEC: [id number] JESSICA: 09/30/15 [facility] [address]: Jose Roberto Cuellar MD REQ: [id number] RECD: 09/30/15 STATUS: CRISTAL BUENROSTRO DR: Madai Meraz MD _ SOURCE: URINE SPDESC: ORDERED: Urine Culture Procedure Result Reported Site Urine Culture Final 10/03/15- 0816 ML Organism 1 ESCHERICHIA COLI [place] Count 75-100,000 (Many) CFU/ML 1. ESCHERICHIA COLI [...] antibiotic reporting. * ML - MAIN LAB ([facility]) . END OF REPORT * ML=Testing performed at Main Lab DEPARTMENT OF PATHOLOGY, [address] [place] [address] Td Carrion M.D. Director [facility] # [id number] 35 REFERENCE VALUE <1.0 (Negative) 36 REFERENCE VALUE <1.0 (Negative) 37 REFERENCE VALUE <1.0 (Negative) 38 REFERENCE VALUE <1.0 (Negative) 39 REFERENCE VALUE <1.0 (Negative) 40 REFERENCE VALUE <1.0 (Negative) Test Performed by: [place] [address] [employer]icated Truck Driver: Rafa Brumfield II, M.D., Ph.D. 41 REFERENCE VALUE <30.0 (Negative) Test Performed by: [place] [address] [employer]icated Truck Driver: Rafa Brumfield II, M.D., Ph.D. 42 REFERENCE VALUE <=1.0 (Negative) Test Performed by: [place] [address] Dedicated Truck Driver: Rafa Brumfield II, M.D., Ph.D. 43 RESULT: No apparent monoclonal protein on serum electrophoresis. Test Performed by: [place] [address] Dedicated Truck Driver: Rafa Brumfield II, M.D., Ph.D. 44 Normal [...] submitted in 7-14 days. Test Performed by: [place] [address] Dedicated Truck Driver: Rafa Brumfield II, M.D., Ph.D. 46 Test Performed by: [place] [address] Dedicated Truck Driver: Rafa Brumfield II, M.D., Ph.D. 47 Test Performed by: [place] [address] Dedicated Truck Driver: Rafa Brumfield II, M.D., Ph.D. 48 this week please 49 REFERENCE VALUE <20.0 (Negative) Test Performed by: [place] [address] Dedicated Truck Driver: Rafa Brumfield II, M.D., Ph.D. 50 Acute inflammation: >10.00 51 REFERENCE VALUE Not Applicable 52 RESULT: HLA-B27 antigen was not detected. ADDITIONAL INFORMATION Method: Flow Cytometry Performing Laboratory CLIA# [id number] Test Performed by: [place] [address] Dedicated Truck Driver: Rafa Brumfield II, M.D., Ph.D. 53 Because [...] REFERENCE VALUE <4.0 (Negative) Test Performed by: [place] [address] Dedicated Truck Driver: Rafa Brumfield II, M.D., Ph.D. 55 Negative serology. Celiac disease unlikely. However, approximately 10% of patients with celiac disease are seronegative. Also, patients who are already adhering to a gluten-free diet may be seronegative. If celiac disease is highly clinically suspected, consider HLA-DQ typing. Test Performed by: [address] [address] Dedicated Truck Driver: Rafa Brumfield II, M.D., Ph.D. 56 SEE RESULT BELOW Name: JENNIFER DANG : [address]: Jarod Dumont MD Acct: [id number] Unit: [id number] AGE: 84 Location: [facility] Re09/12/15 SEX: F Status: REG REF SPEC: [id number] JESSICA: 09/12/15 [facility] [address]: Jarod Dumont MD REQ: [id number] RECD: 09/12/15 STATUS: COMP POLLY DR: Madai Salinas MD _ SOURCE: STOOL SPDESC: ORDERED: C. diff PCR, Fecal Lactoferr COMMENTS: Verbal to Dr Meraz by [id number] at 1902 on 09/12/15. Results read back [...] this assay. * ML - MAIN LAB ([facility]) . END OF REPORT * ML=Testing performed at Main Lab DEPARTMENT OF PATHOLOGY, [address] [place] [address] Td Carrion M.D. Director [facility] # [id number] 57 RUN DATE: 04/05/13 [facility] LAB LIVE PAGE 1 RUN TIME: [address] [place] [address], [place], [place] [address] Specimen Inquiry Name: JENNIFER DANG : [address]: Sebastian Gallardo MD Acct: [id number] Unit: [id number] AGE: 82 Location: [facility] Re04/04/13 SEX: F Status: REG REF SPEC: [id number] JESSICA: 04/04/13- SUBM DR: Sebastian Gallardo MD REQ: [id number] RECD: 04/04/135 STATUS: SOUT _ ORDERED: LEVEL I FINAL DIAGNOSIS Event monitor: Foreign body (event monitor) (Gross diagnosis). CLINICAL HISTORY No history given. GROSS DESCRIPTION The specimen is received fresh labeled Jennifer Dang, Event Monitor, and consists of an event monitor battery, metallic and plastic, measuring 6.2 x 1.8 cm. by up to 0.7 cm. inscribed Guroo Reveal XT, Model 9529, serial number [id number]. Per established hospital medical staff protocol no tissue is submitted. Gross only. Signed (signature on file) Td Carrion MD 151 END OF REPORT * ML=Testing performed at Main Lab DEPARTMENT OF PATHOLOGY, [address] [place] [address] Td Carrion M.D. Director [facility] Permit #[id number] Procedures Date Code Description Status 11/16/2018 25054 Removal Devitalization Tissue Wound Less Than Equal 20 Completed Square CM 11/09/2018 62276 Removal Devitalization Tissue Wound Less Than Equal 20 Completed Square CM 11/02/2018 07269 Removal Devitalization Tissue Wound Less Than Equal 20 Completed Square CM 10/26/2018 19873 Removal Devitalization Tissue Wound Less Than Equal 20 Completed Square CM 09/01/2018 00762 Inject/Drain Joint/Bursa Major W/O US Completed 07/07/2018 35245 EKG Tracing & Interpretation Completed 06/14/2018 82089 Inject/Drain Joint/Bursa Major W/O US Completed 05/03/201860918 Inject/Drain Joint/Bursa Major W/O US Completed 11/25/2017 03273 Inject/Drain Joint/Bursa Major W/O US Completed 11/25/2017 87273 Inject/Drain Joint/Bursa Major W/O US Completed 07/13/2017 40987 Inject/Drain Joint/Bursa Major W/O US Completed 06/24/2017 56140 EKG Tracing & Interpretation Completed 12/24/2016 95770 EKG Tracing & Interpretation Completed 12/19/2016 [id number] Diabetic Retinal Eye Exam Completed 04/16/2016 72603 Polysomnography Sleep Staging 4+ Parameters Completed 12/12/2015 [id number] Diabetic Retinal Eye Exam Completed 12/05/2015 29648 ECHO Transthoracic, Real-Time 2D With Doppler And Completed Color Flow 11/28/2015 00208 EKG Tracing & Interpretation Completed 11/08/2015 62444 Holter Monitor Review (24 hr)dr review & interp only Completed 11/06/2015 02021 ECG Monitor/Recording W/Visual Superimposition Completed Scanning 10/31/2015 15219 EKG Tracing & Interpretation Completed 10/13/2015 62394 EKG, Interpretation Only Completed 10/12/2015 90859 ECHO Transthorasic Realtime 2D W Doppler & Color Flow Completed Hosp 09/15/2015 59600 EKG, Interpretation Only Completed 03/21/2015 69553 Inject/Drain Joint/Bursa Major W/O US Completed 10/03/2014 08205 Inject Tendon Sheath Or Ligament Aponeurosis Eg Completed Plantar Fascia 03/22/2014 36078 EKG Tracing & Interpretation Completed 02/15/2014 08539 Rad Shoulder Comp, Min. 2 Views Completed 02/15/2014 42350 Rad Shoulder Comp, Min. 2 Views Completed 05/02/2013 38556 Interrogation Device Eval,Implantable Loop Recorder Completed System 04/04/2013 36116 Removal Loop Recorder Completed 03/16/2013 93205 Interrogation Device Eval,Implantable Loop Recorder Completed System 01/31/2013 50221 Interrogation Device Eval,Implantable Loop Recorder Completed System 12/30/2012 70777 Interrogation Device Eval,Implantable Loop Recorder Completed System 11/29/2012 16805 Implant Cardiac Loop Recorder Completed 09/23/2012 52497 EKG Tracing & Interpretation Completed 08/18/2012 53780 Xray Knee 3 Views Completed 08/18/2012 28602 Rad Exam; Knee, Ap&L Completed 10/09/2011 06027 Rad Exam; Wrist, Comp, Min 3 Views Completed 07/14/2011 44544 Arthroscopy,Knee,Meniscectomy Medial Or Lateral Completed 07/14/2011 84969 Arthroscopy,Knee,Meniscectomy Medial Or Lateral Completed 05/13/2011 08817 Inject/Drain Joint/Bursa Major W/O US Completed 11/15/2010 43406 Rad Exam; Hip Unilat Completed 11/15/2010 38142 Rad Exam; Hip Unilat Completed 11/15/2010 68754 Rad Exam; Pelvis Completed 08/29/2010 39036 Rad Exam; Wrist, Comp, Min 3 Views Completed 08/16/2010 17364 CLST TRMT Distal Radial FX Completed 05/21/2010 36044 Rad Exam; Hip Unilat Completed 05/21/2010 42015 Rad Exam; Hip Unilat Completed 05/21/2010 48099 Rad Exam; Pelvis Completed Encounters Type Date Location Provider Dx Diagnosis Office Visit 11/30/2018 Wound Care Gilles FloresJulianna S81.802D Unspecified open 9:45a Center AT [facility] [place] Susan Mckeon wound, left lower leg, subsequent encounter W54.8xxD Other contact with dog, subsequent encounter S81.801D Unspecified open wound, right lower leg, subs encntr I10 Essential (primary) hypertension Office Visit 11/23/2018 9:30a Wound Care Gilles FloresJulianna S81.802D Unspecified open Center AT [facility] [place] Susan Mckeon wound, left lower leg, subsequent encounter S81.801D Unspecified open wound, right lower leg, subs encntr W54.8xxD Other contact with dog, subsequent encounter I10 Essential (primary) hypertension Office Visit 10/26/2018 10:30a Wound Care Gilles Bright S81.802A Unspecified open Center AT [facility] [place] Susan Mckeon wound, left lower leg, initial encounter W54.8xxA Other contact with dog, initial encounter I10 Essential (primary) hypertension Z79.01 terminal manager (current) use of anticoagulants Office Visit 09/15/2018 Rheumatology Ck 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 fibrillation I10 Essential (primary) hypertension Office Visit 07/05/2018 10:30a Orthopedic Services Reema Gilmore, M25.561 Pain in right Of C.M.A. M.D. knee M25.461 Effusion, right knee M17.11 Unilateral primary osteoarthritis, right knee M21.061 Valgus deformity, not elsewhere classified, right knee Office Visit 06/14/2018 10:00a Orthopedic Services Reema Gilmore, M25.561 Pain in [...] M.D. knee M06.4 Inflammatory polyarthropathy Z79.899 Other fpc (current) drug therapy A69.20 Lyme disease, unspecified D72.829 Elevated white blood cell count, unspecified Office Visit 12/30/2017 11:30a [place] [facility] Sebastian Ha I48.2 Chronic atrial Of Maria De Jesus Gallardo M.D. fibrillation I42.9 Cardiomyopathy, unspecified Office Visit 12/28/2017 1:30p [place] [facility] Nurse Visit IC Of [facility] Office Visit 12/02/2017 3:15p [place] [facility] Sebastian Ha I48.2 Chronic atrial Of Maria De Jesus Gallardo M.D. fibrillation I42.9 Cardiomyopathy, unspecified Office Visit 11/25/2017 Rheumatology Ck M17.11 Unilateral primary 10:00a Services Of Maria De Jesus Meraz M.D. osteoarthritis, right knee M06.4 Inflammatory polyarthropathy D72.829 Elevated white blood cell count, unspecified Z79.899 Other fpc (current) drug therapy M25.461 Effusion, right knee M25.561 Pain in right knee Office Visit 10/12/2017 Rheumatology Ck M06.4 Inflammatory 2:20p Services Of Maria De Jesus Meraz M.D. polyarthropathy D72.829 Elevated white blood cell count, unspecified M17.11 Unilateral primary osteoarthritis, right knee Z79.899 Other fpc (current) drug therapy Office Visit 09/30/2017 11:15a [place] [facility] Sebastian Ha I50.9 Heart failure, Of Maria De Jesus Gallardo M.D. unspecified I48.2 Chronic atrial fibrillation I42.9 Cardiomyopathy, unspecified Office Visit 07/13/2017 Rheumatology Ck M17.11 Unilateral primary 10:00a Services Of Maria De Jesus Meraz M.D. osteoarthritis, right knee M17.11 Unilateral primary osteoarthritis, right knee M70.51 Other bursitis of knee, right knee M06.4 Inflammatory polyarthropathy M06.4 Inflammatory polyarthropathy Z79.899 Other fpc (current) drug therapy Z79.899 Other terminal system operator (current) drug therapy M70.51 Other bursitis of knee, right knee Office Visit 06/24/2017 [place] Ha I42.9 Cardiomyopathy, 4:00p Cardiology Of Susan Gallardo unspecified Maria De Jesus I48.2 Chronic atrial fibrillation I50.9 Heart failure, unspecified Office Visit 03/25/2017 [place] Ha I42.9 Cardiomyopathy, 9:00a Cardiology Of Susan Gallardo unspecified Jockey Room Custodian I48.2 Chronic atrial fibrillation I50.9 Heart failure, unspecified Office Visit 02/25/2017 Rheumatology Ck M06.4 Inflammatory 10:00a Services Of Maria De Jesus Meraz M.D. polyarthropathy Z79.899 Other fpc (current) drug therapy D72.829 Elevated white blood cell count, unspecified M17.11 Unilateral primary osteoarthritis, right knee Office Visit 01/08/2017 [place] Nurse Visit I42.9 Cardiomyopathy, 10:00a Cardiology Of IC unspecified Jockey Room Custodian Office Visit 12/24/2016 [place] Ha I42.9 Cardiomyopathy, 9:15a Cardiology Of Susan Gallardo unspecified Jockey Room Custodian I48.2 Chronic atrial fibrillation I50.9 Heart failure, unspecified Office Visit 08/25/2016 Rheumatology Ck M06.4 Inflammatory 9:00a Services Of Maria De Jesus Meraz M.D. polyarthropathy Z79.899 Other terminal system operator (current) drug therapy Office Visit 06/11/2016 [place] Ha I42.9 Cardiomyopathy, 9:00a Cardiology Of Susan Gallardo unspecified Maria De Jesus I48.2 Chronic atrial fibrillation Office Visit 05/07/2016 1:30p Pulmonology And [place], R40.0 Somnolence Sleep Services Of DIONI, RN, [facility] G47.61 Periodic limb movement disorder R06.83 Snoring Office Visit 04/11/2016 Rheumatology Ck M06.4 Inflammatory 10:20a Services Of Maria De Jesus Meraz M.D. polyarthropathy D72.829 Elevated white blood cell count, unspecified Z79.899 Other terminal system operator (current) drug therapy Office Visit 04/04/2016 10:15a Pulmonology And Sleep Azra Carrero, R06.83 Snoring Services Of [facility] G47.9 Sleep disorder, unspecified Office Visit 01/07/2016 Rheumatology Ck M06.4 Inflammatory 11:00a Services Of Maria De Jesus Meraz M.D. polyarthropathy D72.829 Elevated white blood cell count, unspecified Z79.899 Other terminal system operator (current) drug therapy Office Visit 12/04/2015 [facility] Jarod Ha A04.7 Enterocolitis due 11:30a For Ryne Dumont M.D. to Clostridium Diseases difficile Office Visit 11/28/2015 [place] Alden Courtney I42.9 Cardiomyopathy, 9:30a Cardiology Of DO Luca [facility] unspecified [facility] I48.0 Paroxysmal atrial fibrillation R06.02 Shortness of breath Office Visit 11/12/2015 Rheumatology Ck M06.4 Inflammatory 11:00a Services Of Maria De Jesus Meraz M.D. polyarthropathy A04.7 Enterocolitis due to Clostridium difficile D72.829 Elevated white blood cell count, unspecified Z79.899 Other fpc (current) drug therapy Office Visit 10/31/2015 1:45p [place] [facility] Sebastian Ha I48.2 Chronic atrial Of [facility] AT [facility] [place] Susan Gallardo fibrillation I42.9 Cardiomyopathy, unspecified R06.02 Shortness of breath Office Visit 10/19/2015 Rheumatology Ck M06.4 Inflammatory 10:00a Services Of Maria De Jesus Meraz M.D. polyarthropathy M25.572 Pain in left ankle and joints of left foot M25.532 Pain in left wrist Office Visit 10/14/2015 2:54p [facility] I50.9 Heart failure, Assoc,anne Das M.D. unspecified Hospitalists E78.5 Hyperlipidemia, unspecified I48.91 Unspecified atrial fibrillation E03.9 Hypothyroidism, unspecified Office Visit 10/13/2015 2:54p [facility] Vikas I50.9 Heart failure, Assoc,anne Das M.D. unspecified Hospitalists I48.91 Unspecified atrial fibrillation E78.5 Hyperlipidemia, unspecified E03.9 Hypothyroidism, unspecified Office Visit 10/12/2015 [facility] Delano I50.9 Heart failure, 2:53p Assoc,anne Abel N.P. unspecified Hospitalists I48.91 Unspecified atrial fibrillation E78.5 Hyperlipidemia, unspecified E03.9 Hypothyroidism, unspecified Office Visit 10/10/2015 [facility] Jarod Ha A04.7 Enterocolitis due 1:20p For Ryne Dumont M.D. to Clostridium Diseases difficile I80.8 Phlebitis and thrombophlebitis of other sites [facility]itis due 9:28a Assanne guzman M.D. to Clostridium Hospitalists difficile I80.8 Phlebitis and thrombophlebitis of other sites E87.6 Hypokalemia I48.2 Chronic atrial fibrillation Office 10/05/2015 [facility] Rakan Booker I80.8 Phlebitis and Visit 9:27a Assanne guzman II, M.D. thrombophlebitis of Hospitalists other sites A04.7 Enterocolitis due to Clostridium difficile E87.6 Hypokalemia I48.2 Chronic atrial fibrillation Office Visit 10/04/2015 [facility] Aisha A04.7 Enterocolitis due 9:53a Assanne guzman M.D. to Clostridium Hospitalists difficile I48.91 Unspecified atrial fibrillation J45.909 Unspecified asthma, uncomplicated Office Visit 10/03/2015 [facility] Aisha A04.7 Enterocolitis due 9:52a Assanne guzman M.D. to Clostridium Hospitalists difficile I48.91 Unspecified atrial fibrillation J45.909 Unspecified asthma, uncomplicated Office Visit 10/03/2015 [facility] Jarod Ha A04.7 Enterocolitis due 11:02a Ryen Dumont M.D. to Clostridium Diseases difficile Office Visit 10/02/2015 [facility] Mary Ha A04.7 Enterocolitis due 10:42a Ryne Dumont M.D. to Clostridium Diseases difficile Office Visit 10/02/2015 [facility] iAsha Robison, A04.7 Enterocolitis due 9:52a anne Atkins M.D. to Clostridium Hospitalists difficile I48.91 Unspecified atrial fibrillation Office Visit 10/01/2015 [facility] Aisha A04.7 Enterocolitis due 9:51a Assanne guzman M.D. to Clostridium Hospitalists difficile I48.91 Unspecified atrial fibrillation Office Visit 10/01/2015 [facility] Jarod Ha A04.7 Enterocolitis due 9:21a For Ryne Dumont M.D. to Clostridium Diseases difficile D72.829 Elevated white blood cell count, unspecified Office Visit 09/30/2015 [facility] Delano A04.7 Enterocolitis due 9:50a Assoc,anne Abel, N.PJulianna to Clostridium Hospitalists difficile I48.91 Unspecified atrial fibrillation J45.909 Unspecified asthma, uncomplicated Office Visit 09/28/2015 Rheumatology Ck M65.872 Other synovitis and 10:00a Services Of Maria De Jesus Meraz M.D. 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 ankle and foot Office 09/16/2015 [facility] Mayi R19.7 Diarrhea, Visit 2:17p Assoc,anne Bell, SOLE ROUGHER unspecified Hospitalists E86.0 Dehydration R53.1 Weakness Office Visit 09/15/2015 [facility] Mayi R19.7 Diarrhea, 2:17p Assoc,anne Bell, SOLE ROUGHER unspecified Hospitalists E86.0 Dehydration R53.1 Weakness Office Visit 09/11/2015 10:10a [facility] Mary Ha M25.572 Pain in left Infectious Susan Dumont ankle and Diseases joints of left foot R19.7 Diarrhea, unspecified M79.644 Pain in right finger(s) Office Visit 09/04/2015 [facility] For Jarod Ha M25.572 Pain in left 10:50a Infectious Ssuan Dumont ankle and joints Diseases of left foot Office Visit 08/31/2015 [facility] Chyna Garcia K57.32 Dvtrcli of lg 1:00p Assoc,pc D.O. int w/o Hospitalists perforation or abscess w/o bleeding E78.0 Pure hypercholesterolemia E03.9 Hypothyroidism, unspecified Office Visit 08/30/2015 12:59p [facility] Chyna K57.32 Dvtrcli of lg int Assoc,pc Jose, D.O. w/o perforation Hospitalists or abscess w/o bleeding E78.0 Pure hypercholesterolemia E03.9 Hypothyroidism, unspecified Office Visit 08/29/2015 12:59p [facility] Chyna K57.32 Dvtrcli of lg int Assoc,pc Jose, D.O. w/o perforation Hospitalists or abscess w/o bleeding E78.0 Pure hypercholesterolemia E03.9 Hypothyroidism, unspecified Office Visit 08/28/2015 [facility] Rakan Booker K57.32 Dvtrcli of lg 12:55p Assoc,pc Erik SAMANIEGO. int w/o Hospitalists perforation or abscess w/o bleeding E78.0 Pure hypercholesterolemia E03.9 Hypothyroidism, unspecified Office Visit 03/21/2015 Orthopedic Lashawn M17.11 Unilateral primary 8:15a Services Of NIMO Reyna osteoarthritis, C.M.A. right knee Office Visit 10/31/2014 Orthopedic Jovany 726.12 Tenosynovitis 2:45p Services Of Susan Livingston Bicipital C.M.A. 728.89 Muscle Disorders Other Office Visit 10/03/2014 9:00a Orthopedic Jovany Livingston 726.61 Bursitis Services Marita Davis Tendinitis Pes C.M.A. Anseverardous 726.12 Tenosynovitis Bicipital 715.11 Osteoarthrosis Localized Prim Shoulder Region 728.89 Muscle Disorders Other Office Visit 03/22/2014 11:30a [place] [facility] Sebastian Ha 427.31 Atrial Of Maria De Jesus Gallardo M.D. Fibrillation Office Visit 02/15/2014 9:00a Orthopedic Jovany 840.4 Sprains & Strains Services Of Susan Livinsgton Rotator Cuff C.M.A. (Capsule) Office Visit 03/23/2013 3:30p [place] [facility] Sebastian Ha 427.31 Atrial Of Maria De Jesus Gallardo M.D. Fibrillation Office Visit 10/28/2012 1:45p Windy Manzo 719.46 Pain Joint Lower Services Of Susan Livingston Leg C.M.A. Office Visit 10/15/2012 1:30p [place] [facility] Sebastian Ha 427.31 Atrial Of Maria De Jesus Gallardo M.D. Fibrillation Office Visit 09/23/2012 1:00p [place] [facility] Sebastian Ha 427.31 Atrial Of Maria De Jesus Gallardo M.D. Fibrillation Office Visit 08/18/2012 8:15a Windy Manzo 726.61 Bursitis Services Of Susan Livingston Tendinitis Pes C.M.A. Lois 715.96 Osteoarthrosis Unspec Genlzd Or Localized Lower Leg Office Visit 10/09/2011 Windy Manzo 715.94 Osteoarthrosis 11:15a Services Of Susan Livingston Unspec Genlzd Or C.M.A. Localized Hand Office Visit 06/19/2011 Windy Manzo 836.1 Dislocation Knee 9:45a Services Of Susan Livingston Tear Of Lateral C.M.A. Cartilage Or Meniscus Curre Office Visit 06/12/2011 Windy Manzo 836.1 Dislocation Knee 9:45a Services Of Susan Livingston Tear Of Lateral C.M.A. Cartilage Or Meniscus Curre Office Visit 05/13/2011 Windy Manzo 836.0 Dislocation Knee 10:00a Services Of Susan Livingston Tear Of Medial C.M.A. Cartilage Or Meniscus Curren Office Visit 05/07/2011 Orthopedic Jovany 836.0 Dislocation Knee 8:45a Services Of Susan Livingston Tear Of Medial C.M.A. Cartilage Or Meniscus Currvick Office Visit 02/05/2011 Orthopedic Jovany 726.61 Bursitis Tendinitis 10:00a Services Of Susan Livingston Pes Anserinus C.M.A. Office Visit 11/15/2010 Orthopedic Mik Humphreys, 726.5 Enthesopathy Of Hip 1:45p Services Of Susan Region C.M.AJulianna 719.45 Pain Joint Pelvic Region & Thigh Office Visit 07/12/2010 9:15a Orthopedic Jovany 726.5 Enthesopathy Of Services Of Susan Livingston Hip Region C.M.A. Office Visit 05/21/2010 2:30p Orthopedic Jovany 726.5 Enthesopathy Of Services Of Susan Livingston Hip Region C.M.A. Plan of Treatment Future Appointment(s):03/17/2019 1:00 pm - Ck Meraz M.D. at Rheumatology Services Of [facility]12/22/2018 - Reema Gilmore M.D.M17.11 Unilateral primary osteoarthritis, right kneeFollow up:Follow up: prn
[2019-01-14 08:03] VITALS: BP 149/97
--- NOTE | 2019-01-14 09:12 | UC ---
Skin Complaint HPI - HPI Summary HPI Summary: LAST NIGHT ABOUT 10 PM PATIENT TURNED OFF THE LIGHTS AND TURNED TO WALK TO HER ROOM WHEN SHE TRIPPED AND FELL ONTO A LEATHER CHAIR. SUSTAINED A SKIN TEAR TO HER RIGHT UPPER ARM. NO HEAD INJURY OR LOC. DENIES ANY BONY INJURY. NO NUMBNESS OR TINGLING OF THE ARM/HAND. THINKS SHE IS UP TO DATE WITH TETANUS. - History of Current Complaint Chief Complaint: UCSkin Time Seen by Provider: 01/14/19 08:29 Stated Complaint: WOUND ON ARM Hx Obtained From: Patient Hx Last Menstrual Period: Years ago. Onset/Duration: Sudden Onset, Lasting Hours, Still Present Timing: Constant Onset Severity: Mild Current Severity: Mild Pain Intensity: 2 Pain Scale Used: 0-10 Numeric Character: Pain Aggravating Factor(s): Touch Alleviating Factor(s): Nothing Related History: Trauma - Allergy/Home Medications Allergies/Adverse Reactions: Allergies Allergy/AdvReac Type Severity Reaction Status Date / Time aspirin Allergy Vomiting Verified 01/14/19 08:00 morphine Allergy unk Verified 01/14/19 08:00 Penicillins Allergy unk Verified 01/14/19 08:00 Sulfa (Sulfonamide Allergy reasp Verified 01/14/19 08:00 Antibiotics) distress MOLD AND POLLEN Allergy Unknown Uncoded 01/14/19 08:00 Reaction Details Home Medications: Home Medications Apixaban [Eliquis] 2.5 mg PO DAILY 01/14/19 [History Confirmed 01/14/19] Ibuprofen TAB* [Advil TAB*] 200 mg PO Q6H PRN 01/14/19 [History Confirmed ] Multivitamins/Minerals TAB* [Theragran/minerals TAB*] 1 tab PO DAILY 01/14/19 [ History Confirmed 01/14/19] PMH/Surg Hx/FS Hx/Imm Hx Endocrine History: Hypothyroidism Cardiovascular History: Hypertension, Congestive Heart Failure, Atrial Fibrillation Other History Of: Anticoagulant Therapy Negative For: HIV, Hepatitis B, Hepatitis C - Surgical History Surgical History: Yes Surgery Procedure, Year, and Place: [facility]. 1992 & 1993 & 2009 BILATERAL HIP REPLACEMENTS [facility]. 2012 Rt HAND - GANGLION CYST [facility]. 2000 THYROIDECTOMY [facility]. 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 C -diff colitis - Family History Known Family History: Positive: Cardiac Disease, Hypertension - Social History Alcohol Use: Daily Alcohol Amount: "small drink every evening" Substance Use Type: None Smoking Status (MU): Former Smoker Amount Used/How Often: X 2 YEARS Have You Smoked in the Last Year: No When Did the Patient Quit Smoking/Using Tobacco: 1955 - Immunization History Most Recent Influenza Vaccination: 04/24 Most Recent Tetanus Shot: unknown Most Recent Pneumonia Vaccination: UP TO DATE Hx Tetanus, Diphtheria Vaccination: Yes Review of Systems All Other Systems Reviewed And Are Negative: Yes Constitutional: Positive: Negative Skin: Positive: Other - SKIN TEAR RIGHT ARM Respiratory: Positive: Negative Cardiovascular: Positive: Negative Gastrointestinal: Positive: Negative Neurological: Positive: Negative Physical Exam Triage Information Reviewed: Yes Appearance: Well-Appearing, No Pain Distress, Well-Nourished Vital Signs: Initial Vital Signs Temp 96.6 F 01/14/19 07:55 Pulse 79 01/14/19 07:55 Resp 18 01/14/19 07:55 BP 149/97 01/14/19 07:55 Pulse Ox 99 01/14/19 07:55 Vital Signs Reviewed: Yes Eyes: Positive: Conjunctiva Clear ENT: Positive: Hearing grossly normal Neck: Positive: Supple Respiratory: Positive: No respiratory distress, No accessory muscle use Cardiovascular: Positive: Pulses Normal Abdomen Description: Positive: Soft Musculoskeletal: Positive: ROM Intact, No Edema, Other: - NO BONY TENDERNESS RIGHT ARM Neurological: Positive: Alert Psychological: Positive: Age Appropriate Behavior Skin: Positive: Other - 10 CM SKIN TEAR POSTERIOR RIGHT UPPER ARM. OOZING BLOOD. Negative: Rashes Course/Dx - Course Course Of Treatment: PT WITH 10CM SKIN TEAR POSTERIOR RIGHT UPPER ARM. SKIN PULLED BACK INTO PLACE TO MOSTLY COVER THE DENUDED AREA. WOUND COVERED WITH BACITRACIN AND NONSTICK. WRAPPED WITH OLGA. PT STATES SHE WILL F/U PCP AND VERIFY HER TETANUS STATUS. I ENCOURAGED HER TO CALL WOUND CARE TODAY TO SCHEDULE AN APPT. - Diagnoses Provider Diagnosis: Skin tear of right upper extremity Discharge - Sign-Out/Discharge Documenting (check all that apply): Patient Departure All imaging exams completed and their final reports reviewed: No Studies - Discharge Plan Condition: Stable Disposition: HOME Patient Education Materials: Skin Tear (ED) Referrals: Madai Salinas MD [Primary Care Provider] - 2 Days Additional Instructions: KEEP DRESSINGS IN PLACE AND DRY FOR THE FIRST 24 HRS. THEN YOU MAY REMOVE THE DRESSING AND GENTLY CLEANSE WITH CLEAN, MOIST TOWEL. PAT DRY AND RE-BANDAGE. APPLY THIN LAYER ANTIBIOTIC OINTMENT TO A NONSTICK BANDAGE, THEN APPLY IT TO THE WOUND, COVER WITH GAUZE FOR PADDING AND WRAP TO HOLD IN PLACE. I RECOMMEND AVOIDING NEOMYCIN CONTAINING PRODUCTS THEY CAN BE HIGHLY ALLERGENIC. CHANGE BANDAGE DAILY AND NEEDED IF IT BECOMES SOILED OR WET. SEEK FOLLOW-UP IF YOU DEVELOP SPREADING REDNESS OF THE SKIN, PURULENT DRAINAGE, FEVER, INCREASED PAIN OR ANY OTHER CONCERNING SYMPTOMS. F/U HERE OR WITH YOUR PCP FOR RECHECK IN 2 DAYS. CALL THE WOUND CARE CLINIC TODAY TO SET UP AN APPT FOR EARLY NEXT WEEK. [facility] [phone] VERIFY YOUR TETANUS STATUS WITH YOUR PCP. - Billing Disposition and Condition Condition: STABLE Disposition: Home
== END 2019-01-14 09:10 | disposition home or self-care (01) ==
LOC: UCEAST 07:44
DX: S41.111A Laceration without foreign body of right upper arm, initial encounter (principal); W18.09XA Striking against other object with subsequent fall, initial encounter; Y92.019 Unspecified place in single-family (private) house as the place of occurrence of the external cause; Z87.891 Personal history of nicotine dependence; Z88.5 Allergy status to narcotic agent; Z88.0 Allergy status to penicillin; Z88.2 Allergy status to sulfonamides
CPT/HCPCS: 99212; G0463